=== PATIENT | female | born 1945 | race Caucasian/White ===

== ENCOUNTER 2019-12-26 09:38 | Inpatient (IN) | payer MEDICARE ==
[~2019-12-26] VITALS: Ht 176.5 cm; Wt 110.0 kg
--- NOTE | 2019-12-26 09:56 | PHYS DOC ---
General Adult EDM: Chief Complaint: CHEST PAIN HPI: HPI: The history was obtained from the patient. Patient is a 74-year-old female with PMH chronic leukemia who presents with a chief complaint of chest pain. Patient states she has not felt well for the past 2 weeks. She is unable to explain her exact symptoms. She states that she has had a nonproductive cough. She notes she has had subjective fevers and chills over 2 weeks. She notes that chest pain began sometime prior to arrival. States earlier this morning but does not know when. She states she was at rest when the pain began. She did take nitroglycerin at home with relief of her pain. She states that the chest pain seems to be returning. Denies syncope. Denies diaphoresis. States that the pain starts in her chest wall and seems to radiate through to her back. Denies feelings of irregular rapid heartbeat. States she was on antibiotics recently but does not know what for or what antibiotic she was prescribed. She states that she does use 2 to 3 L of oxygen at home at baseline. Notes that they did increase her oxygen requirement 1 L recently. Denies history of blood clot in legs or lungs. No other complaints at this time. Review of Systems: Review of Systems: Constitutional: Denies fever or chills Eyes: Denies change in visual acuity HENT: Denies nasal congestion or sore throat Respiratory: Positive shortness of breath, cough Cardiovascular: Positive for chest pain GI: Denies abdominal pain, nausea, vomiting, bloody stools or diarrhea : Denies dysuria Musculoskeletal: Denies back pain or joint pain Integument: Denies rash Neurologic: Denies headache, focal weakness or sensory changes Endocrine: Denies polyuria or polydipsia Lymphatic: Denies swollen glands Psychiatric: Denies depression or anxiety Heart Score: HEART Score for Chest Pain: HEART Score for Chest Pain Response (Comments) Value History Moderately Suspicious 1 ECG Nonspecific Repolarizatio 1 Age > 65 2 Risk Factors >3 Risk Factors or Hx CAD 2 Troponin < Normal Limit 0 Total 6 Risk Factors: Risk Factors: DM, Current or recent (<one month) smoker, HTN, HLP, family history of CAD, obesity. Risk Scores: Score 0 - 3: 2.5% MACE over next 6 weeks - Discharge Home Score 4 - 6: 20.3% MACE over next 6 weeks - Admit for Clinical Observation Score 7 - 10: 72.7% MACE over next 6 weeks - Early Invasive Strategies Physical Exam: PE: Constitutional: Well developed, well nourished, no acute distress, non-toxic ap pearance. [] HENT: Normocephalic, atraumatic, bilateral external ears normal, oropharynx moist, no oral exudates, nose normal. [] Eyes: PERRLA, EOMI, conjunctiva normal, no discharge. [] Neck: Normal range of motion, no tenderness, supple, no stridor. [] Cardiovascular:Heart rate regular rhythm, no murmur [] Lungs & Thorax: Bilateral breath sounds clear to auscultation. Nasal cannula in place. [] Abdomen: soft, no tenderness, no masses, no pulsatile masses. [] Skin: Warm, dry, no erythema, no rash. [] Back: No tenderness, no CVA tenderness. [] Extremities: No tenderness, no cyanosis, no clubbing, ROM intact, no edema. [] Neurologic: Alert and oriented X 3, normal motor function, normal sensory function, no focal deficits noted. [] Psychologic: Affect normal, judgement normal, mood normal. [] Current Patient Data: Labs: Laboratory Tests Test 12/26/19 10:10 White Blood Count 47.7 x10^3/uL Red Blood Count 5.84 x10^6/uL Hemoglobin 14.0 g/dL Hematocrit 44.1 % Mean Corpuscular Volume 76 fL Mean Corpuscular Hemoglobin 24 pg Mean Corpuscular Hemoglobin Concent 32 g/dL Red Cell Distribution Width 17.3 % Platelet Count 203 x10^3/uL Neutrophils (%) (Auto) 24 % Lymphocytes (%) (Auto) 73 % Monocytes (%) (Auto) 2 % Eosinophils (%) (Auto) 1 % Basophils (%) (Auto) 0 % Neutrophils # (Auto) 11.7 x10^3uL Lymphocytes # (Auto) 34.6 x10^3/uL Monocytes # (Auto) 1.1 x10^3/uL Eosinophils # (Auto) 0.2 x10^3/uL Basophils # (Auto) 0.1 x10^3/uL Platelet Estimate Pending Sodium Level 141 mmol/L Potassium Level 3.9 mmol/L Chloride Level 102 mmol/L Carbon Dioxide Level 29 mmol/L Anion Gap 10 Blood Urea Nitrogen 15 mg/dL Creatinine 0.9 mg/dL Estimated GFR (Cockcroft-Gault) 61.0 BUN/Creatinine Ratio 17 Glucose Level 202 mg/dL Lactic Acid Level 2.1 mmol/L Calcium Level 9.3 mg/dL Magnesium Level 1.7 mg/dL Total Bilirubin 1.2 mg/dL Aspartate Amino Transf (AST/SGOT) 35 U/L Alanine Aminotransferase (ALT/SGPT) 47 U/L Alkaline Phosphatase 152 U/L Troponin I Quantitative 0.020 ng/mL NI-Lbk-M-Type Natriuretic Peptide 229 pg/mL Total Protein 6.5 g/dL Albumin 3.9 g/dL Albumin/Globulin Ratio 1.5 Lipase 69 U/L Current Medications Medications (Trade) Dose Ordered Sig/Porsche Route PRN Reason Start Time Stop Time Status Last Admin Dose Admin Iohexol (Omnipaque 350 Mg/ml) 100 ml 1X ONCE IV 12/26/19 11:15 12/26/19 11:16 DC 12/26/19 11:12 Vital Signs: Vital Signs Date Time Temp Pulse Resp B/P (MAP) Pulse Ox O2 Delivery O2 Flow Rate FiO2 12/26/19 10:38 98.4 94 22 120/89 (99) 92 Room Air EKG: EKG: EKG consistent with sinus tachycardia. Ventricular rate of 101 bpm. [place] normal. QTc 514. No acute ischemic changes appreciated. ST flattening noted in lateral precordial leads. [] Radiology/Procedures: Radiology/Procedures: [place] [address] IMAGING REPORT Signed PATIENT: GEOVANY PARRA ACCOUNT: [id number] : 1945 LOCATION: ER AGE: 74 SEX: F EXAM STATUS: REG ER ORD. PHYSICIAN: KUNAL JENKINS DO REASON: SOb and Cp. concern for PE OMNI 350 100CC PROCEDURE: CT ANGIOGRAPHY CHEST Examination: CT angiography chest with IV contrast HISTORY: History of shortness of breath, chest pain COMPARISON: None available TECHNIQUE: Axial CT and radiographic images were performed with IV contrast. Coronal and sagittal 3-D MIP reformats are performed Exposure: One or more of the following individualized dose reduction techniques were utilized for this examination: 1. Automated exposure control 2. Adjustment of the mA and/or kV according to patient size 3. Use of iterative reconstruction technique FINDINGS: The central airways are patent. Coronary artery calcifications identified. Moderate aortic atherosclerosis. There is no evidence of filling defect identified in the main pulmonary arterial trunk and right and left main pulmonary arteries and the visualized lobar, segmental branch of the pulmonary arteries. There is a 2 cm right hilar lymph node identified. Moderate to severe bilateral lung emphysematous changes. Mild airspace opacity identified in the right middle lobe of the lung and in the bibasilar lungs likely atelectasis or infiltrates Partially visualized mild splenomegaly Cystic structure identified in the 4.5 cm in the right kidney. Moderate degenerative changes thoracic spine. Mild prominent bilateral axillary lymph nodes and retroperitoneal. IMPRESSION: 1. No evidence of pulmonary embolism. 2. Moderate to severe bilateral lung emphysematous changes. Focal airspace opacity identified in the right middle lobe, bibasilar lungs likely atelectasis or infiltrates. Follow-up to resolution.. 3. Partially visualized mild splenomegaly. Partially visualized probable cyst right kidney. 4. Mild prominent bilateral axillary lymph nodes, retroperitoneal lymph nodes and hilar lymph nodes. Nonspecific. Lymphoma is not completely excluded. Consider PET/CT follow-up. Electronically signed by: Jude Restrepo MD (12/26/2019 11:39 AM) [id number] DICTATED AND SIGNED BY: JUDE RESTREPO MD DATE: 12/26/19 1139 CC: PCP,NO; KUNAL JENKINS DO ~ [place] [address] IMAGING REPORT Signed PATIENT: GEOVANY PARRA ACCOUNT: [id number] : 1945 LOCATION: ER AGE: 74 SEX: F EXAM STATUS: REG ER ORD. PHYSICIAN: KUNAL JENKINS DO REASON: CP PROCEDURE: CHEST AP ONLY Examination: CHEST AP ONLY History: CP Comparison: 09/09/2009. Findings: AP portable upright frontal view of the chest was obtained. The cardiomediastinal silhouette is normal. Lungs are clear. Borderline pulmonary hyperinflation again seen. There is no pneumothorax. No pleural effusion is appreciated. No acute bone abnormality. IMPRESSION: No acute cardiopulmonary process. Electronically signed by: Pete Rousseau MD (12/26/2019 10:14 AM) [id number] DICTATED AND SIGNED BY: PETE ROUSSEAU MD DATE: 12/26/19 1014 CC: PCP,VEDA; KUNAL JENKINS DO ~ [] Course & Med Decision Making: Course & Med Decision Making Pertinent Labs and Imaging studies reviewed. (See chart for details) [] Patient is a chronically ill-appearing 74-year-old female presents with chief complaint of chest pain and shortness of breath. She states the chest pain was relieved with nitroglycerin at home prior to arrival. Initial EKG without acute ischemic changes. She does have some ST flattening in the lateral leads. Basic labs were obtained. She does have mild elevated lactate of 2.1. No signs of focal infection. COVID swab obtained and pending. CT angiogram of the chest was obtained given her history of cancer to rule out pulmonary embolism. This was negative. Antibiotics were deferred as her no signs of acute bacterial infection. She did take an aspirin at home prior to arrival. I do feel she is at least a moderate risk heart score and will require hospitalization for further work-up. Signout has been given to hospitalist and patient is agreeable for hospitalization. Tita Disclaimer: Tita Disclaimer: This electronic medical record was generated, in whole or in part, using a voice recognition dictation system. Departure Departure: Impression: Primary Impression: Chest pain Qualified Codes: R07.9 - Chest pain, unspecified Additional Impressions: CLL (chronic lymphocytic leukemia) Hypomagnesemia Disposition: ADMITTED INPATIENT Condition: STABLE Referrals: PCP,VEDA (PCP) Justification of Admission: Justification of Admission: Justification of Admission Dx: Yes Angina: [place] Worsening of Sym KUNAL JENKINS DO Dec 26, 2019 09:56
--- NOTE | 2019-12-26 10:17 | RAD ---
Examination: CHEST AP ONLY History: CP Comparison: 09/09/2009. Findings: AP portable upright frontal view of the chest was obtained. The cardiomediastinal silhouette is normal. Lungs are clear. Borderline pulmonary hyperinflation again seen. There is no pneumothorax. No pleural effusion is appreciated. No acute bone abnormality. IMPRESSION: No acute cardiopulmonary process. Electronically signed by: Pete Arce MD (12/26/2019 10:14 AM) [id number]
--- NOTE | 2019-12-26 10:36 | EKG ---
[address] [address] Test Date: 2019-12-26 Test Time: 09:47:06 Pat Name: GEOVANY PARRA Department: Room: Gender: F Field Education Coordinator: TABITHA : 1945 Requested By: KUNAL JENKINS Order Number: [id number] Reading MD: Wilfred Johnson Measurements Intervals [place] Rate: 101 P: -90 NC: 98 QRS: 19 QRSD: 98 T: 69 QT: 396 QTc: 514 Interpretive Statements SINUS RHYTHM Electronically Signed On 01-01-2020 12:51:23 CDT by Wilfred Johnson
[2019-12-26 10:45] LABS: BASO # 0.1 x10^3/uL (0.0-0.2); BASO % 0 % (0-3); EOS # 0.2 x10^3/uL (0.0-0.7); EOS % 1 % (0-3); HEMATOCRIT 44.1 % (36.0-47.0); LYMPH # 34.6 x10^3/uL (1.0-4.8); LYMPH % 73 % (24-48); MEAN CORPUSCULAR HEMOGLOBIN 24 pg (25-35); MEAN CORPUSCULAR HGB CONC 32 g/dL (31-37); MEAN CORPUSCULAR VOLUME 76 fL (79-100); MONO # 1.1 x10^3/uL (0.0-1.1); MONO % 2 % (0-9); NEUT # 11.7 x10^3uL (1.8-7.7); NEUT % 24 % (31-73); PLATELET COUNT 203 x10^3/uL (140-400); RED BLOOD COUNT 5.84 x10^6/uL (3.50-5.40); RED CELL DISTRIBUTION WIDTH 17.3 % (11.5-14.5)
[2019-12-26 10:50] LABS: CALCIUM 9.3 mg/dL (8.5-10.1); CREATININE 0.9 mg/dL (0.6-1.0); POTASSIUM 3.9 mmol/L (3.5-5.1)
[2019-12-26 11:03] LABS: ALBUMIN 3.9 g/dL (3.4-5.0); ALBUMIN/GLOBULIN RATIO 1.5 (1.0-1.7); MAGNESIUM 1.7 mg/dL (1.8-2.4); TOTAL BILIRUBIN 1.2 mg/dL (0.2-1.0); TOTAL PROTEIN 6.5 g/dL (6.4-8.2)
[2019-12-26] MEDS ORDERED: IOHEXOL 350 MG/ML 100 ML VIAL. IV ONE (11:15)
[2019-12-26 11:19] LABS: WHITE BLOOD COUNT 47.7 x10^3/uL (4.0-11.0)
--- NOTE | 2019-12-26 11:42 | RAD ---
Examination: CT angiography chest with IV contrast HISTORY: History of shortness of breath, chest pain COMPARISON: None available TECHNIQUE: Axial CT and radiographic images were performed with IV contrast. Coronal and sagittal 3-D MIP reformats are performed Exposure: One or more of the following individualized dose reduction techniques were utilized for this examination: 1. Automated exposure control 2. Adjustment of the mA and/or kV according to patient size 3. Use of iterative reconstruction technique FINDINGS: The central airways are patent. Coronary artery calcifications identified. Moderate aortic atherosclerosis. There is no evidence of filling defect identified in the main pulmonary arterial trunk and right and left main pulmonary arteries and the visualized lobar, segmental branch of the pulmonary arteries. There is a 2 cm right hilar lymph node identified. Moderate to severe bilateral lung emphysematous changes. Mild airspace opacity identified in the right middle lobe of the lung and in the bibasilar lungs likely atelectasis or infiltrates Partially visualized mild splenomegaly Cystic structure identified in the 4.5 cm in the right kidney. Moderate degenerative changes thoracic spine. Mild prominent bilateral axillary lymph nodes and retroperitoneal. IMPRESSION: 1. No evidence of pulmonary embolism. 2. Moderate to severe bilateral lung emphysematous changes. Focal airspace opacity identified in the right middle lobe, bibasilar lungs likely atelectasis or infiltrates. Follow-up to resolution.. 3. Partially visualized mild splenomegaly. Partially visualized probable cyst right kidney. 4. Mild prominent bilateral axillary lymph nodes, retroperitoneal lymph nodes and hilar lymph nodes. Nonspecific. Lymphoma is not completely excluded. Consider PET/CT follow-up. Electronically signed by: Jude Restrepo MD (12/26/2019 11:39 AM) [id number]
[2019-12-26] MEDS ORDERED: MAGNESIUM SULFATE 2GM 50 ML IV ONE (12:15)
[2019-12-26] MEDS ORDERED: ONDANSETRON PF 4 MG/2 ML VIAL. IVP PRN (12:15)
[2019-12-26 14:16] LABS: % ATYL 2 % (0-0); % BANDS 2 % (0-9); % LYMPHS 72 % (24-48); % MONOS 3 % (0-10); SMUDGE CELLS PRESENT
[2019-12-26 14:17] LABS: HYPOCHROMIA PRESENT; TARGET CELLS PRESENT
[2019-12-26 14:18] LABS: OVALOCYTES PRESENT; STOMATOCYTES PRESENT
[2019-12-26 14:20] LABS: PLT ESTIMATE ADEQUATE (ADEQUATE)
[2019-12-26 14:37] VITALS: BP 135/73
--- NOTE | 2019-12-26 17:34 | NUR ---
PATIENT IS 74 Y O F ARRIVED TO ROOM 122 VIA EMS ACCOMPANIED BY STAFF. PAT IS A/O X 4, TRANSFER WITH ASSIST X 1, USING A WALKER. PATIENT C/O SOA, DENIES PAIN, DENIES N/V. PATIENT ORIENTED TO THE ROOM AND HOSPITAL POLICIES. PT IS CURRENTLY IN A BED AWAITING FOR MEAL, STATED SHE IS HUNGRY. WILL CONTINUE TO MONITOR.
--- NOTE | 2019-12-26 17:58 | NUR ---
CONSULT FOR CARDIOLOGY CALLED
[2019-12-26 17:59] LABS: ALBUMIN 3.6 g/dL (3.4-5.0); ALBUMIN/GLOBULIN RATIO 1.2 (1.0-1.7); CALCIUM 8.9 mg/dL (8.5-10.1); GFR 54.1; POTASSIUM 3.8 mmol/L (3.5-5.1); TOTAL PROTEIN 6.6 g/dL (6.4-8.2)
[2019-12-26 18:03] LABS: BGAS PH 7.39 (7.35-7.45)
--- NOTE | 2019-12-26 19:59 | HP ---
ADMIT DATE: 12/26/2019 HISTORY OF PRESENT ILLNESS: The patient is a 74-year-old female patient who came to the Emergency Room complaining of chest pain. She stated that she had not been feeling well for the last 2 weeks, has been complaining of mild low-grade fever. She is tired, short of breath, and hypoxic. She was before on 2 liters of oxygen. Now, she is on 3 liters of oxygen. She noted that her chest pain began sometimes prior to arrival early in the mornings, but does not know exactly the timing. She was at rest when the pain began. She did take 3 nitroglycerins sublingually with relief of her pain. She stated that her chest pain seems to be returning. Denied any syncope or diaphoresis. She stated the pain was retrosternal, radiated through and through to her back. Denied any feelings of irregular rapid heart rate. She stated that she was recently on antibiotic, but does not know what for or what antibiotic she was prescribed. She stated that she is normally on 3 liters of oxygen and normally keeps her oxygen more than 95%. However, recently her oxygen saturation dropped down to 87% and had to increase her oxygen to 3 liters. She was extensively investigated in the Emergency Room. Her white cell count was high at 47,700; however, she is known to have chronic lymphocytic leukemia. Her chemistry showed that she has mild lactic acidosis. Her first set of troponin was slightly elevated at 0.020, but otherwise her chemistry seems to be unremarkable except the magnesium ____ on the lower side. Her hemoglobin, hematocrit and platelets are all within normal limit. She has had an EKG, which showed that she was in sinus tachycardia with a ventricular rate of 101 beats per minute, normal axis, corrected QT interval of 514, no acute ischemic changes appreciated, ST flattening noted in the lateral precordial leads. Her chest x-ray showed no acute cardiopulmonary process; however, CT angio, which was done as her further investigation of her chest pain showed that the patient has no evidence of pulmonary embolism. She has [id number] bilateral lung emphysematous changes, focal airspace opacity identified in the right middle lobe and bibasilar lungs, likely atelectasis or infiltrate. She also has partially visualized mild splenomegaly, partially visualized probable cyst in the right kidney. She has mild prominent bilateral axillary lymph nodes, retroperitoneal lymph nodes and hilar lymph nodes; unspecific lymphoma is not completely excluded. The patient was admitted with basically chest pain and worsening shortness of breath. The patient has also some memory deficit, so she could not really give us all the information about her. PAST MEDICAL HISTORY: She claims that she has coronary artery disease and had myocardial infarction twice for which she was seen at [facility] and was also seen at [facility] at [facility]. She was diagnosed with congestive heart failure, morbid obesity, obstructive sleep apnea. Her primary care physician is Dr. [place]. Unfortunately, his office was closed. She gets some of her medication from [facility], but mostly from [facility]. PAST SURGICAL HISTORY: Significant for appendectomy, right hip fracture, status post open reduction and internal fixation, back surgery, total abdominal hysterectomy and bilateral salpingo-oophorectomy, bilateral cataract extraction and tonsillectomy. ALLERGIES: SHE IS ALLERGIC TO HYDROCODONE. MEDICATIONS: Unfortunately, her primary care physician's office is closed, so we do not have access to her medical record this evening. She lives alone and she has a caregiver. FAMILY HISTORY: She has one brother, older, and still alive. Her mother at age of 80 because of myocardial infarction. Father at age of 78, has 2 brothers, one committed suicide and one shortly after he had surgery on his knee. SOCIAL HISTORY: She lives alone. She has a caregiver who does the shopping and cleaning. She is an ex-smoker and continued to smoke every now and then. She does not drink alcohol or use recreational drugs. 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 She has one daughter because of complication of alcoholism. One son is homeless and 1 daughter who lives around here in [place] with her children and her . REVIEW OF SYSTEMS: She had bilateral cataract extraction, but denied any glaucoma or macular degeneration. Denied any earache, tinnitus or sensorineural deafness. Denied any nosebleeds, stuffy nose or postnasal drip. Denied any sore throat, sore tongue, toothache, hoarseness of voice or difficulty swallowing. Denied any nausea, vomiting, diarrhea or constipation. Denied any hematemesis, melena, or hematochezia. Denied any dysuria, frequency or hematuria. Did complain obviously of chest pain and shortness of breath. Denied any cough, phlegm or hemoptysis. PHYSICAL EXAMINATION: GENERAL: On arrival to the Emergency Room, she apparently was slightly tachypneic, but there was no pallor, jaundice, cyanosis or thyromegaly. No jugular venous distention. No limb edema. VITAL SIGNS: Her heart rate was 94, blood pressure 120/89, temperature was 98.4, respiratory rate was 22 and oxygen saturation was 92%. HEAD, EYES, EARS, NOSE AND THROAT: Showed normocephalic, atraumatic. NECK: Supple. HEART: Showed normal first and second heart sounds. No gallop or murmur. CHEST: Shows central trachea, equally reduced expansion, reduced air entry, vesicular sounds, very few crepitations posteriorly. I could not appreciate any rhonchi. ABDOMEN: Distended, soft, nontender. NEUROLOGIC: She definitely has impaired memory; however, all her cranial nerves are intact. EXTREMITIES: She moves extremities without difficulty. She apparently ambulates with a walker and chose a scooter at her house. LABORATORY DIAGNOSTIC DATA: Her lab work on arrival showed a white cell count 47,700, hemoglobin 14, hematocrit 44, MCV 76 and platelet count 203,000 with a manual differential showed 24% polymorphs, 73% lymphocytes and 2% monocytes. Her serum sodium was 141, potassium 3.9, chloride 102, bicarbonate 29, anion gap of 10, BUN 15, creatinine 0.9, estimated GFR was 61 mL per minute. Her glucose was 202, calcium was 9.3. Lactic acid was 2.1 and up to 2.4. Her magnesium was 1.7. Total bilirubin, AST, ALT were normal. Alkaline phosphatase was slightly elevated. Her first troponin was less than 0.020. BNP was ____. Total protein 6.5, albumin 3.9 and lipase was ____. Her chest x-ray showed no acute cardiopulmonary process; however, CT angio of the chest showed no evidence of pulmonary embolism; however, she has [id number] bilateral lung emphysematous changes with focal airspace opacity identified in the right middle lobe. She has also bibasilar lung, likely atelectasis or infiltrate ____. She has partially visualized mild splenomegaly, partially visualized probable cyst in the right kidney and she has mild prominent bilateral axillary lymph nodes and retroperitoneal lymph nodes and hilar lymph nodes, nonspecific and lymphoma is not completely excluded. PLAN: We will do 2 more sets of cardiac enzyme, given the finding on her CT scan. I will start also on IV antibiotic. We will consult the solar installation foreman and repeat all her labs. If her bilirubin and alkaline phosphatase continued to rise, we might have to do an abdominal ultrasound. VLAD RICARDO MD DR: YASMINE/shanta JOB#: [id number] / [id number]
[2019-12-26 20:08] VITALS: BP 135/77
[2019-12-26] MEDS: LACTOBACILLUS RHAMNOSUS GG 1 CAPSULE. PO SCH (20:10)
[2019-12-26] MEDS: DOXYCYCLINE HYCLATE 100 MG TABLET PO SCH (20:10)
[2019-12-26] MEDS: ACETAMINOPHEN 325 MG TABLET PO PRN (21:14)
[2019-12-26 22:11] VITALS: BP 170/79
[2019-12-26 22:54] VITALS: BP 152/72
--- NOTE | 2019-12-27 00:27 | NUR ---
Pt in room, lying in bed at shift change. Pt A/O, calm, and pleasant. IV in R AC changed this evening and a new IV placed in L hand, however, IV was accidently removed. Pt cooperative and compliant with medications and assessment. Addendum: 12/27/19 at 0034 by SALVATORE STRATTON RN Pt did have c/o headache and Tylenol 650mg administered as ordered.
[2019-12-27] MEDS: ACETAMINOPHEN 325 MG TABLET PO PRN ×3 (04:04→22:26)
[2019-12-27 06:16] VITALS: BP 121/64
[2019-12-27 07:02] LABS: HEMATOCRIT 40.1 % (36.0-47.0); HEMOGLOBIN 12.5 g/dL (12.0-15.5); RED BLOOD COUNT 5.3 x10^6/uL (3.50-5.40); RED CELL DISTRIBUTION WIDTH 17.5 % (11.5-14.5); WHITE BLOOD COUNT 38.6 x10^3/uL (4.0-11.0)
[2019-12-27 07:11] LABS: CALCIUM 8.6 mg/dL (8.5-10.1); CREATININE 0.7 mg/dL (0.6-1.0); GFR 81.6; POTASSIUM 3.7 mmol/L (3.5-5.1)
[2019-12-27] MEDS: DOXYCYCLINE HYCLATE 100 MG TABLET PO SCH ×2 (09:39→22:26)
[2019-12-27] MEDS: LACTOBACILLUS RHAMNOSUS GG 1 CAPSULE. PO SCH ×2 (09:39→22:26)
[2019-12-27 11:00] VITALS: BP 151/60
--- NOTE | 2019-12-27 14:29 | NUR ---
IP: patient PUI for COVID-19 requires contact and airborne precautions.
[2019-12-27 15:00] VITALS: BP 150/79
--- NOTE | 2019-12-27 16:57 | PDOC2 ---
CONSULT DOS: DATE: 12/27/19 TIME: 16:50 Reason for Consult: Chest pain Referring Physician: Dr. Stevens Chief Complaint Chest pain, fatigue Source: Chart review, Patient Problem List Problems Medical Problems: (1) Chest pain Status: Acute (2) CLL (chronic lymphocytic leukemia) Status: Acute (3) Hypomagnesemia Status: Acute History of Present Illness The patient is a 74-year-old female who presented with 2 weeks of increasing shortness of breath and more recent episodes of chest discomfort. The patient has a history of chronic lymphocytic leukemia and her initial white count was 47. She has a history of possible coronary artery disease although she is a very limited historian. EKG showed no acute ischemic changes. Troponin has been normal x2. Chest x-ray shows no acute processes. CT of the chest showed no pulmonary emboli. It did show moderate to severe emphysematous changes. The patient is more comfortable today. Cardiovascular: CAD, HTN Pulmonary: COPD, Other (Obstructive sleep apnea) Heme/Onc: Cancer Past Surgical History: Appendectomy, Hysterectomy, Tonsillectomy, Other (Repair of a hip fracture) Family History: Coronary Artery Disease, Hypertension Smoke: No ALCOHOL: none Current Medications Current Medications Iohexol (Omnipaque 350 Mg/ml) 100 ml 1X ONCE IV Last administered on 12/26/19at 11:12; Start 12/26/19 at 11:15; Stop 12/26/19 at 11:16; Status DC Magnesium Sulfate 50 ml @ 25 mls/hr 1X ONCE IV Last administered on 12/26/19at 13:00; Start 12/26/19 at 12:15; Stop 12/26/19 at 14:14; Status DC Ondansetron HCl (Zofran) 4 mg PRN Q4HRS PRN IVP NAUSEA/VOMITING; Start 12/26/19 at 12:15; Stop 12/27/19 at 12:14; Status DC Ceftriaxone Sodium 1 gm/ Sodium Chloride 50 ml @ 100 mls/hr Q24H IV Last administered on 12/26/19at 18:25; Start 12/26/19 at 17:30 Doxycycline Hyclate (Vibra-Tab) 100 mg BID PO Last administered on 12/27/19at 09:39; Start 12/26/19 at 21:00 Lactobacillus Rhamnosus (Culturelle) 1 cap BID PO Last administered on 12/27/19at 09:39; Start 12/26/19 at 21:00 Acetaminophen (Tylenol) 650 mg PRN Q6HRS PRN PO MILD PAIN / TEMP > 100.3'F Last administered on 12/27/19at 15:26; Start 12/26/19 at 21:00 Allergies: Coded Allergies: hydrocodone (Verified Allergy, Unknown, 12/26/19) General: YES: Fatigue Cardiovascular: yes: Chest Pain General: mild distress HEENT: Atraumatic Lungs: Other (Mildly decreased breath sounds) Heart: Regular rate Abdomen: Normal bowel sounds VITALS Vital Signs Date Time Temp Pulse Resp B/P (MAP) Pulse Ox O2 Delivery O2 Flow Rate FiO2 12/27/19 15:00 98.0 84 18 150/79 (102) 96 Room Air 12/27/19 08:15 3.0 Labs Laboratory Tests Test 12/26/19 10:10 12/26/19 13:09 12/26/19 17:13 12/26/19 17:48 White Blood Count 47.7 x10^3/uL (4.0-11.0) Red Blood Count 5.84 x10^6/uL (3.50-5.40) Hemoglobin 14.0 g/dL (12.0-15.5) Hematocrit 44.1 % (36.0-47.0) Mean Corpuscular Volume 76 fL (79-100) Mean Corpuscular Hemoglobin 24 pg (25-35) Mean Corpuscular Hemoglobin Concent 32 g/dL (31-37) Red Cell Distribution Width 17.3 % (11.5-14.5) Platelet Count 203 x10^3/uL (140-400) Neutrophils (%) (Auto) 24 % (31-73) Lymphocytes (%) (Auto) 73 % (24-48) Monocytes (%) (Auto) 2 % (0-9) Eosinophils (%) (Auto) 1 % (0-3) Basophils (%) (Auto) 0 % (0-3) Neutrophils # (Auto) 11.7 x10^3uL (1.8-7.7) Lymphocytes # (Auto) 34.6 x10^3/uL (1.0-4.8) Monocytes # (Auto) 1.1 x10^3/uL (0.0-1.1) Eosinophils # (Auto) 0.2 x10^3/uL (0.0-0.7) Basophils # (Auto) 0.1 x10^3/uL (0.0-0.2) Segmented Neutrophils % 21 % (35-66) Band Neutrophils % 2 % (0-9) Lymphocytes % 72 % (24-48) Atypical Lymphocytes % (Manual) 2 % (0-0) Monocytes % 3 % (0-10) Smudge Cells Present Platelet Estimate Adequate (ADEQUATE) Hypochromasia Present Target Cells Present Ovalocytes Present Stomatocytes Present Sodium Level 141 mmol/L (136-145) 137 mmol/L (136-145) Potassium Level 3.9 mmol/L (3.5-5.1) 3.8 mmol/L (3.5-5.1) Chloride Level 102 mmol/L (98-107) 99 mmol/L (98-107) Carbon Dioxide Level 29 mmol/L (21-32) 27 mmol/L (21-32) Anion Gap 10 (6-14) 11 (6-14) Blood Urea Nitrogen 15 mg/dL (7-20) 16 mg/dL (7-20) Creatinine 0.9 mg/dL (0.6-1.0) 1.0 mg/dL (0.6-1.0) Estimated GFR (Cockcroft-Gault) 61.0 54.1 BUN/Creatinine Ratio 17 (6-20) 16 (6-20) Glucose Level 202 mg/dL (70-99) 306 mg/dL (70-99) Lactic Acid Level 2.1 mmol/L (0.4-2.0) 2.4 mmol/L (0.4-2.0) 2.9 mmol/L (0.4-2.0) Calcium Level 9.3 mg/dL (8.5-10.1) 8.9 mg/dL (8.5-10.1) Magnesium Level 1.7 mg/dL (1.8-2.4) Total Bilirubin 1.2 mg/dL (0.2-1.0) 1.0 mg/dL (0.2-1.0) Aspartate Amino Transf (AST/SGOT) 35 U/L (15-37) 35 U/L (15-37) Alanine Aminotransferase (ALT/SGPT) 47 U/L (14-59) 47 U/L (14-59) Alkaline Phosphatase 152 U/L (46-116) 144 U/L (46-116) Troponin I Quantitative 0.020 ng/mL (0-0.055) < 0.017 ng/mL (0-0.055) CO-Gkl-G-Type Natriuretic Peptide 229 pg/mL (0-449) Total Protein 6.5 g/dL (6.4-8.2) 6.6 g/dL (6.4-8.2) Albumin 3.9 g/dL (3.4-5.0) 3.6 g/dL (3.4-5.0) Albumin/Globulin Ratio 1.5 (1.0-1.7) 1.2 (1.0-1.7) Lipase 69 U/L (73-393) Blood Gas pH 7.39 (7.35-7.45) Blood Gas PCO2 40 mmHg (35-45) Blood Gas PO2 73 mmHg (71-100) Blood Gas HCO3 25 mmol/L (22-26) Arterial Bld O2 Saturation (Calc) 94 % (92-99) FiO2 32 % Test 12/27/19 05:30 White Blood Count 38.6 x10^3/uL (4.0-11.0) Red Blood Count 5.30 x10^6/uL (3.50-5.40) Hemoglobin 12.5 g/dL (12.0-15.5) Hematocrit 40.1 % (36.0-47.0) Mean Corpuscular Volume 76 fL (79-100) Mean Corpuscular Hemoglobin 24 pg (25-35) Mean Corpuscular Hemoglobin Concent 31 g/dL (31-37) Red Cell Distribution Width 17.5 % (11.5-14.5) Platelet Count 160 x10^3/uL (140-400) Sodium Level 137 mmol/L (136-145) Potassium Level 3.7 mmol/L (3.5-5.1) Chloride Level 100 mmol/L (98-107) Carbon Dioxide Level 27 mmol/L (21-32) Anion Gap 10 (6-14) Blood Urea Nitrogen 13 mg/dL (7-20) Creatinine 0.7 mg/dL (0.6-1.0) Estimated GFR (Cockcroft-Gault) 81.6 Glucose Level 155 mg/dL (70-99) Calcium Level 8.6 mg/dL (8.5-10.1) Troponin I Quantitative < 0.017 ng/mL (0-0.055) Images Chest x-ray with no acute changes. CTA of the chest as above with no pulmonary emboli and moderate to severe emphysematous changes. Assessment/Plan 1. Chest pain. Patient's had no acute ischemic EKG changes. Troponin negative x2. Chest x-ray with no acute processes. We will continue present medications. Patient will require outpatient follow-up and she will states she has been followed at [facility]. 2. CLL. White count of 47. Continue as per primary service. 3. Generalized fatigue and shortness of breath. Chest x-ray shows no acute processes. CT scan showed no PE but do show severe emphysema. Continuing baseline medications. 4. Borderline hypertension. Continue present medications. Thank you for allowing us to participate in the care of your patient. JIE MANCINI MD Dec 27, 2019 16:57
[2019-12-27] MEDS ORDERED: NITROGLYCERIN SUBLINGUAL 0.4 MG BOTTLE OF 25. SL PRN (18:00)
[2019-12-27] MEDS ORDERED: FURO40TA4 PO (18:35)
[2019-12-27] MEDS ORDERED: ISOS120T4 PO (18:35)
[2019-12-27] MEDS ORDERED: METO25TA4 PO (18:35)
[2019-12-27] MEDS ORDERED: GABA-586 PO (18:35)
[2019-12-27] MEDS ORDERED: TRAM50TA PO (18:35)
[2019-12-27] MEDS ORDERED: CRESTOR10 MG PO (18:35)
[2019-12-27] MEDS ORDERED: CALC-30 PO (18:35)
[2019-12-27] MEDS ORDERED: PANT40TA3 PO (18:35)
[2019-12-27] MEDS ORDERED: DULO60CA6 PO (18:35)
[2019-12-27] MEDS ORDERED: METF10007 PO (18:35)
[2019-12-27] MEDS ORDERED: CYAN100072 PO (18:35)
[2019-12-27] MEDS ORDERED: ALBU2.5V5 NEB (18:35)
[2019-12-27] MEDS ORDERED: NITR0.4T24 SL (18:35)
[2019-12-27] MEDS ORDERED: FLUT1DIS3 IH (18:35)
[2019-12-27] MEDS ORDERED: CHOL500051 PO (18:35)
[2019-12-27] MEDS ORDERED: BETA15OI TP (18:35)
[2019-12-27] MEDS ORDERED: GLIP-26 PO (18:35)
[2019-12-27] MEDS ORDERED: SUCR1TAB35 PO (18:35)
[2019-12-27] MEDS ORDERED: POTA20TA4 PO (18:35)
[2019-12-27] MEDS ORDERED: MV-M1TAB8 PO (18:35)
[2019-12-27] MEDS ORDERED: ALBUTEROL SULFATE 8GM INHALER. INH PRN (19:00)
[2019-12-27 20:25] VITALS: BP 151/81
[2019-12-27] MEDS ORDERED: CLOBETASOL EMOLLIENT 0.05% TOPICAL CREAM 15GM TUBE. TP PRN (21:00)
[2019-12-27] MEDS: FLUTICASONE FUROATE 200mcg/INH ELLIPTA INHALER. INH SCH (21:00)
[2019-12-27] MEDS: ALBUTEROL SULFATE 8GM INHALER. INH SCH (21:00)
[2019-12-27 22:01] VITALS: BP 168/67
--- NOTE | 2019-12-27 22:20 | PN ---
DATE: 12/27/2019 SUBJECTIVE: The patient is a 74-year-old female patient who was admitted yesterday through the Emergency Room with a complaint of chest pain. She also complained of not generally feeling well for the last 2 weeks, has been complaining of mild low-grade fever, tired, short of breath, and hypoxic. She was before on 2 liters of oxygen, now she is on 3 liters of oxygen. She did have chest pain that began sometime prior to arrival early in the morning, but does not know exactly the time. She was at rest when this pain began. She did take 3 nitroglycerin sublingually with relief of her pain. She stated that her chest pain seems to be returning. She denied any syncope or diaphoresis. Her pain is mostly retrosternal, radiates through and throughout her back. Denied any feeling of irregular heart rate. She was recently on antibiotic, but does not know what for and what antibiotic she was prescribed. She stated that she is normally on 2 liters of oxygen, maintaining her oxygen saturation at 95%. However, recently her oxygen saturation dropped down to 87%, has increased her oxygen to 3 liters. She is known to have chronic lymphatic leukemia. Her chemistry showed she has mild lactic acidosis. Her first troponin was 0.020 and was admitted and has had 2 more sets of cardiac enzymes that were ruled out myocardial infarction. Her EKG showed that she was in sinus tachycardia with a ventricular rate of 101 beats per minute with prolonged QT interval. Her chest x-ray showed no acute cardiopulmonary process; however, CT angio which was done for further investigation of her chest pain showed the patient has no evidence of pulmonary embolism; however, she has [id number] bilateral lung emphysematous changes, focal airspace opacity identified in the right middle lobe and bibasilar lung, likely atelectasis, infiltrate. She also has partially visualized mild splenomegaly, partially visualized probable cyst in her right kidney and she has multiple lymph nodes in the bilateral axillary areas retroperitoneal lymph nodes and hilar lymph nodes and lymphoma cannot be completely excluded. She was admitted basically with chest pain; however, the patient was extremely demented and does not really give us any information. We did speak with her home health who promised to fax her list of medication today and luckily she did. PHYSICAL EXAMINATION: GENERAL: When I saw her this afternoon, she was resting slightly propped up in bed, in no apparent respiratory distress. There was no pallor, jaundice or cyanosis. No lymphadenopathy, no thyromegaly. No jugular venous distention. No lower limb edema. Her heart rate was 86, blood pressure was 151/60, temperature was 97.4, respiratory rate was 18 and oxygen saturation was 95% on 3 liters of oxygen. HEAD, EYES, EARS, NOSE, AND THROAT: Showed normocephalic, atraumatic. NECK: Supple. CARDIAC: Normal first and second heart sounds with no gallop, rub or murmur. CHEST: Showed central trachea, equally reduced expansion, reduced air entry, vesicular sounds. A very few crepitations posteriorly. I could not appreciate any rhonchi. ABDOMEN: Distended, soft, nontender. NEUROLOGIC: She is definitely have impaired memory, although all her cranial nerves are intact. She moves extremities without difficulty. She apparently ambulates with a walker and has a scooter at home. Examination of both feet showed there are marked reddish discoloration of toes of both feet that extends proximally to the metatarsal area, but somewhat tender to touch according to the patient. LABORATORY DATA: Today showed total white cell count of 38,600, hemoglobin 12.5, hematocrit 40, MCV 76 and platelet count of 160,000. Her chemistry this morning showed a serum sodium 137, potassium 3.7, chloride 100, bicarbonate 27, anion gap of 10, BUN 13, creatinine 0.7, estimated GFR was 82 mL per minute. Her glucose 155, calcium was 8.6. The patient has 3 sets of cardiac enzymes that ruled out acute myocardial infarction. ASSESSMENT: It transpired that the patient has huge list of medical problems including acute gastric ulcer with hemorrhage, anemia, angina pectoris, osteoarthritis, bronchial asthma calcification of the aorta. She did have chronic anxiety, chronic bilateral low back pain, bilateral sciatica, chronic combined systolic and diastolic congestive heart failure, chronic fatigue, chronic lymphoid leukemia in remission, chronic pain in both knees, chronic respiratory failure, did have close fracture of the right hip treated conservatively. She is known to have chronic obstructive pulmonary disease. She as depression, dermatophytosis, diabetic nephropathy with proteinuria and severe emphysema of the lung. She has generalized osteoarthritis of multiple sites. Gastroesophageal reflux disease, headaches, hearing loss, hepatosplenomegaly, history of cerebrovascular accident with left-sided hemiparesis. 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 She apparently has history of myocardial infarction, nonalcoholic steatohepatitis, neuropathic pain, morbid obesity with body mass index between 30-39. She has obstructive sleep apnea, history of pyelonephritis, restless leg syndrome, history of shingles, splenomegaly, type 2 diabetes mellitus with hyperglycemia without long-term use of insulin, urinary frequency visual impairment, vitamin B12 deficiency and vitamin D deficiency. Her past surgical history is significant for appendectomy, back surgery, dental surgery, and esophagogastroduodenoscopy. The patient had tonsillectomy, hysterectomy, eye surgery, right femoral neck fracture treated with open reduction and internal fixation using dynamic hip screws. She is apparently currently on following medications: She is on calcium carbonate with vitamin D 600 mg, she takes 1 tablet twice a day. She was on cephalexin 500 mg 1 capsule by mouth 4 times a day, cholecalciferol vitamin D 5000 units 1 capsule once a day, cyanocobalamin 1000 mcg tablet 1 tablet once a day, duloxetine for Cymbalta 60 mg twice a day. She is on furosemide 40 mg 1 tablet daily. She is on gabapentin 300 mg by mouth at bedtime. She is on glipizide for Glucotrol-XL 10 mg 1 tablet daily. She is on isosorbide mononitrate 120 mg once a day, meloxicam for Mobic 15 mg once a day. She is on metformin for Glucophage 500 mg she takes 2 tablets twice a day, metoprolol 12.5 mg twice a day, multivitamin 1 tablet once a day, nitroglycerin 0.4 mg sublingually every 5 minutes x 3 for chest pain. She is also on Protonix 40 mg twice a day, potassium chloride 20 mEq daily, Crestor 10 mg at bedtime and [place] eye drops 0.65% nasal spray use one spray to each nostril 3 times a day and Carafate 1 gram 3 times a day and tramadol 50 mg 4 times a day. PLAN: My plan is to obviously reconcile all her medication. She is still under investigation. Once we have the test result for COVID is negative, we will be able to proceed with other the investigation as she seemed to have severe peripheral vascular disease which she probably needs arterial Doppler ultrasound. VLAD RICARDO MD DR: Dylan JOB#: [id number] / [id number]
[2019-12-27] MEDS: ATORVASTATIN CALCIUM 20 MG TABLET PO SCH (22:26)
[2019-12-27] MEDS: DULoxetine HCL 60 MG CAPSULE.DR PO SCH (22:26)
[2019-12-27] MEDS: GABAPENTIN 300 MG CAPSULE. PO SCH (22:26)
[2019-12-28 06:05] VITALS: BP 160/87
[2019-12-28] MEDS: MULTIVITAMIN I-VITE TABLET. PO SCH (08:36)
[2019-12-28] MEDS: POTASSIUM CHLORIDE 20 MEQ TABLET.ER. PO SCH (08:36)
[2019-12-28] MEDS: LACTOBACILLUS RHAMNOSUS GG 1 CAPSULE. PO SCH ×2 (08:37→21:59)
[2019-12-28] MEDS: METOPROLOL TART IMMED RELEASE 25 MG TABLET PO SCH (08:37)
[2019-12-28] MEDS: PANTOPRAZOLE 40 MG TABLET. PO SCH ×2 (08:37→17:12)
[2019-12-28] MEDS: DOXYCYCLINE HYCLATE 100 MG TABLET PO SCH ×2 (08:37→21:59)
[2019-12-28] MEDS: DULoxetine HCL 60 MG CAPSULE.DR PO SCH ×2 (08:37→21:59)
[2019-12-28] MEDS: SUCRALFATE 1 GM TABLET. PO SCH ×3 (08:37→17:12)
[2019-12-28] MEDS: metFORMIN 500 MG TABLET PO SCH ×2 (08:37→17:12)
[2019-12-28] MEDS: FUROSEMIDE 40 MG TABLET PO SCH (08:37)
[2019-12-28] MEDS: CALCIUM CARB/VIT D3 500/200 TABLET PO SCH ×2 (08:37→17:13)
[2019-12-28] MEDS: CYANOCOBALAMIN (VITAMIN B-12) 1,000 MCG TABLET. PO SCH (08:38)
[2019-12-28] MEDS: CHOLECALCIFEROL (VITAMIN D3) 1,000 UNIT TABLET PO SCH (08:38)
[2019-12-28] MEDS: ISOSORBIDE MONONITRATE ER 30 MG TAB.ER.24H PO SCH (08:40)
[2019-12-28] MEDS: FLUTICASONE FUROATE 200mcg/INH ELLIPTA INHALER. INH SCH ×2 (09:00→21:00)
[2019-12-28] MEDS: ALBUTEROL SULFATE 8GM INHALER. INH SCH ×2 (09:00→21:00)
[2019-12-28 11:00] VITALS: BP 149/72
[2019-12-28 15:00] VITALS: BP 111/60
--- NOTE | 2019-12-28 18:00 | PN ---
DATE: 12/28/2019 SUBJECTIVE: The patient is resting, slightly propped up in bed, in no apparent distress. She continued to be extremely short of breath on minimal exertion. She has severe emphysema; however, she had 4 sets of cardiac enzymes that ruled out acute myocardial infarction. PHYSICAL EXAMINATION: GENERAL: When I examined her, she looked well and was in no apparent respiratory distress at rest. There was no pallor, jaundice, cyanosis or thyromegaly. No jugular venous distention. No limb edema. VITAL SIGNS: Her heart rate was 89, blood pressure was 149/72, temperature was 98.2, respiratory rate 22, and oxygen saturation was 98%. HEAD, EYES, EARS, NOSE AND THROAT: Showed normocephalic, atraumatic. NECK: Supple. HEART: Showed normal first and second heart sounds. No gallop or murmur. CHEST: Shows central trachea, equal bilateral chest expansion, air entry, vesicular breath sounds. ABDOMEN: Distended, soft, nontender. NEUROLOGIC: She was grossly intact; however, she definitely has impaired memory. She does ambulate with a walker and has a scooter at home. She has marked reddish discoloration of both feet. Her intake over the last 24 hours was 1140, no output was recorded. LABORATORY DATA: Her lab work as of yesterday showed her serum sodium was 137, potassium 3.7, chloride 100, bicarbonate 27, anion gap of 10, BUN 13, creatinine 0.7, estimated GFR was 81 mL per minute. Her glucose 155, calcium was 8.6. Her serum triglycerides 139, total cholesterol 195, LDL was 130, VLDL was 27, HDL was 38 and ratio of 5. Her coronavirus by PCR was not detectable. ASSESSMENT: 1. Chest pain; however, she has 4 cardiac enzymes that ruled out acute myocardial infarction. 2. Community-acquired pneumonia, for which she continues to be on IV antibiotic in the form of ceftriaxone and doxycycline. 3. Acute chronic obstructive pulmonary disease exacerbation. 4. Acute on chronic hypoxic respiratory failure. 5. Chronic diastolic congestive heart failure. 6. She has chronic lymphatic leukemia, in remission. 7. She has also severe osteoarthritis of both knee joints. VLAD RICARDO MD DR: YASMINE/shanta JOB#: [id number] / [id number]
[2019-12-28 19:37] VITALS: BP 132/62
[2019-12-28] MEDS: GABAPENTIN 300 MG CAPSULE. PO SCH (21:59)
[2019-12-28] MEDS: ACETAMINOPHEN 325 MG TABLET PO PRN (21:59)
[2019-12-28] MEDS: ATORVASTATIN CALCIUM 20 MG TABLET PO SCH (22:00)
[2019-12-28] MEDS: traMADol 50 MG TABLET PO PRN (22:30)
[2019-12-28 23:19] VITALS: BP 152/76
[2019-12-29 06:08] VITALS: BP 172/84
[2019-12-29] MEDS: ALBUTEROL SULFATE 8GM INHALER. INH SCH ×2 (09:00→20:26)
[2019-12-29] MEDS: POTASSIUM CHLORIDE 20 MEQ TABLET.ER. PO SCH (09:00)
[2019-12-29] MEDS: ISOSORBIDE MONONITRATE ER 30 MG TAB.ER.24H PO SCH (09:19)
[2019-12-29] MEDS: PANTOPRAZOLE 40 MG TABLET. PO SCH ×2 (09:19→16:57)
[2019-12-29] MEDS: MULTIVITAMIN I-VITE TABLET. PO SCH (09:19)
[2019-12-29] MEDS: CYANOCOBALAMIN (VITAMIN B-12) 1,000 MCG TABLET. PO SCH (09:19)
[2019-12-29] MEDS: FUROSEMIDE 40 MG TABLET PO SCH (09:19)
[2019-12-29] MEDS: CHOLECALCIFEROL (VITAMIN D3) 1,000 UNIT TABLET PO SCH (09:20)
[2019-12-29] MEDS: METOPROLOL TART IMMED RELEASE 25 MG TABLET PO SCH (09:20)
[2019-12-29] MEDS: metFORMIN 500 MG TABLET PO SCH ×2 (09:20→16:57)
[2019-12-29] MEDS: SUCRALFATE 1 GM TABLET. PO SCH ×3 (09:20→16:57)
[2019-12-29] MEDS: DULoxetine HCL 60 MG CAPSULE.DR PO SCH ×2 (09:26→20:26)
[2019-12-29] MEDS: LACTOBACILLUS RHAMNOSUS GG 1 CAPSULE. PO SCH ×2 (09:26→20:25)
[2019-12-29] MEDS: DOXYCYCLINE HYCLATE 100 MG TABLET PO SCH ×2 (09:26→20:25)
[2019-12-29] MEDS: CALCIUM CARB/VIT D3 500/200 TABLET PO SCH ×2 (09:27→16:57)
[2019-12-29] MEDS: FLUTICASONE FUROATE 200mcg/INH ELLIPTA INHALER. INH SCH ×2 (09:27→20:26)
[2019-12-29] MEDS: ACETAMINOPHEN 325 MG TABLET PO PRN (09:32)
--- NOTE | 2019-12-29 10:22 | RAD ---
Examination: Bilateral venous Doppler Indication: Leg swelling Technique: Ultrasound evaluation of the bilateral lower extremities was performed from the groin to the upper calf with michelle scale, spectral and color doppler evaluation. Comparison: None Findings: There is normal venous flow and compressibility of bilateral common femoral veins, femoral veins, popliteal veins, and visualized proximal calf veins. Impression: No evidence for deep vein thrombosis of bilateral lower extremities from the level of the calf veins to the groins. Electronically signed by: Gurmeet Torres MD (12/29/2019 10:19 AM) [id number]
[2019-12-29 11:00] VITALS: BP 108/56
[2019-12-29 15:00] VITALS: BP 129/69
[2019-12-29 19:55] VITALS: BP 140/73
[2019-12-29] MEDS: GABAPENTIN 300 MG CAPSULE. PO SCH (20:25)
[2019-12-29] MEDS: ATORVASTATIN CALCIUM 20 MG TABLET PO SCH (20:26)
[2019-12-29 23:44] VITALS: BP 141/88
--- NOTE | 2019-12-29 23:50 | PN ---
DATE: 12/29/2019 SUBJECTIVE: The patient is resting, sitting, slightly propped up in bed, in no apparent distress. She continued to complain of shortness of breath on exertion. Can walk only for short distances, but has no more complaint of chest pain. Unfortunately, venous Doppler ultrasound instead of arterial Doppler ultrasound was ordered, so I did make sure we ordered arterial Doppler ultrasound as she has marked discoloration of her feet. PHYSICAL EXAMINATION: GENERAL: When I examined her, she looked well and was clearly in no apparent respiratory distress. No pallor, jaundice, cyanosis or thyromegaly. No jugular venous distention or limb edema. VITAL SIGNS: Her heart rate was 79, blood pressure was 129/69, temperature 98.4, respiratory rate 20, and oxygen saturation was 97%. HEAD, EYES, EARS, NOSE AND THROAT: Showed normocephalic, atraumatic. NECK: Supple. CARDIAC: Normal first and second heart sounds. No gallop or murmur. CHEST: Showed central trachea, equal bilateral chest expansion, air entry, vesicular sounds. I could not really appreciate any crepitation or rhonchi. ABDOMEN: Distended, soft, nontender. NEUROLOGIC: She was grossly intact, although she has marked impaired memory. She does ambulate with a walker for short distances and uses a scooter at home. She continued to have marked reddish discoloration of both feet, especially when she dangles them on the side of the bed. Her intake over the last 24 hours was 1470, no output was recorded. LABORATORY DATA: Her last lab work showed a serum sodium 137, potassium 3.7, chloride 100, bicarbonate 27, anion gap of 10, BUN 13, creatinine 0.7, estimated GFR was 81 mL per minute. Her glucose 155, calcium was 8.6. Her serum triglycerides were 139, total cholesterol 195, LDL was 130, VLDL was 27, HDL was 38 and ratio was 5. Her white cell count was 38,600, hemoglobin 12.5, hematocrit 40, MCV 76 and platelet count of 160,000. ASSESSMENT: 1. Chest pain, however, she has 3 cardiac enzymes which ruled out myocardial infarction. 2. Community-acquired pneumonia, for which she continues to be on IV antibiotic in the form of ceftriaxone and doxycycline. 3. Acute on chronic obstructive pulmonary disease exacerbation. 4. Acute on chronic hypoxic respiratory failure. 5. Chronic diastolic congestive heart failure. 6. She has chronic lymphatic leukemia, in remission. 7. She has severe osteoarthritis of both knee joints. 8. Peripheral vascular disease. PLAN: To continue with all her current medication. I will arrange for her to have arterial Doppler ultrasound, and she seemed to be receptive to the idea of going to a care home facility, so we will arrange for her to be admitted to [place] tomorrow. VLAD RICARDO MD DR: YASMINE/shanta JOB#: [id number] / [id number]
[2019-12-30] MEDS: traMADol 50 MG TABLET PO PRN (02:07)
[2019-12-30 06:23] VITALS: BP 138/75
[2019-12-30 06:32] LABS: HEMATOCRIT 36.4 % (36.0-47.0); HEMOGLOBIN 11.4 g/dL (12.0-15.5); RED BLOOD COUNT 4.76 x10^6/uL (3.50-5.40); RED CELL DISTRIBUTION WIDTH 17.5 % (11.5-14.5); WHITE BLOOD COUNT 29.6 x10^3/uL (4.0-11.0)
[2019-12-30 06:50] LABS: ALBUMIN 3.2 g/dL (3.4-5.0); CALCIUM 8.9 mg/dL (8.5-10.1); CREATININE 0.8 mg/dL (0.6-1.0); GFR 69.9; POTASSIUM 3.8 mmol/L (3.5-5.1); TOTAL BILIRUBIN 0.5 mg/dL (0.2-1.0); TOTAL PROTEIN 6.3 g/dL (6.4-8.2)
[2019-12-30] MEDS: MULTIVITAMIN I-VITE TABLET. PO SCH (08:08)
[2019-12-30] MEDS: metFORMIN 500 MG TABLET PO SCH (08:09)
[2019-12-30] MEDS: DULoxetine HCL 60 MG CAPSULE.DR PO SCH (08:09)
[2019-12-30] MEDS: POTASSIUM CHLORIDE 20 MEQ TABLET.ER. PO SCH (08:09)
[2019-12-30] MEDS: METOPROLOL TART IMMED RELEASE 25 MG TABLET PO SCH (08:09)
[2019-12-30] MEDS: FUROSEMIDE 40 MG TABLET PO SCH (08:10)
[2019-12-30] MEDS: CALCIUM CARB/VIT D3 500/200 TABLET PO SCH (08:10)
[2019-12-30] MEDS: DOXYCYCLINE HYCLATE 100 MG TABLET PO SCH (08:10)
[2019-12-30] MEDS: LACTOBACILLUS RHAMNOSUS GG 1 CAPSULE. PO SCH (08:10)
[2019-12-30] MEDS: CHOLECALCIFEROL (VITAMIN D3) 1,000 UNIT TABLET PO SCH (08:10)
[2019-12-30] MEDS: PANTOPRAZOLE 40 MG TABLET. PO SCH (08:10)
[2019-12-30] MEDS: ISOSORBIDE MONONITRATE ER 30 MG TAB.ER.24H PO SCH (08:10)
[2019-12-30] MEDS: SUCRALFATE 1 GM TABLET. PO SCH ×2 (08:10→11:23)
[2019-12-30] MEDS: CYANOCOBALAMIN (VITAMIN B-12) 1,000 MCG TABLET. PO SCH (08:10)
[2019-12-30] MEDS: FLUTICASONE FUROATE 200mcg/INH ELLIPTA INHALER. INH SCH ×2 (08:14→08:20)
[2019-12-30] MEDS: ALBUTEROL SULFATE 8GM INHALER. INH SCH ×2 (08:14→08:19)
--- NOTE | 2019-12-30 09:04 | NUR ---
NURSING NOTE PT WAS IN BED THIS AM UPON ASSESSMENT AND MEDICATION ADMINISTRATION. PT IS A&O AND DENIES PAIN AT THIS TIME, HOWEVER, RECEIVED TRAMADOL FOR CHRONIC BACK PAIN FROM [facility] [facility]. PT TAKES HER MEDS WHOLE ALL AT ONCE AND C/O THE PILLS TAKING A WHILE TO GO DOWN, ENCOURAGED PT TO ONLY TAKE A FEW AT A TIME IN THE FUTURE. PT LBM WAS 12/28 STATES SHE GOES EVERY DAY BEFORE LUNCH. PT WEARS 3L OF OXYGEN. UPON PALPITATION OF PT PEDAL PULSES, PT STATES IT CAUSES PAIN WHEN LIGHTLY TOUCHING HER LEGS. PT HAS SOME GENERALIZED SWELLING. DR RICARDO HAS ORDERED ARTERIAL STUDY D/T DISCOLORATION IN HER TOES AND WEAK PULSES IN HER FEET. PT FINISHED HER BREAKFAST AND RADIOLOGY AT BEDSIDE NOW. WILL CONTINUE TO MONITOR. OSMAN MILES.
[2019-12-30 10:44] VITALS: BP 125/68
--- NOTE | 2019-12-30 11:26 | NUR ---
NURSING NOTE MEDICATION PT HAS SCHEDULED CARAFATE, WHEN EXPLAINING TO THE PT WHAT THE MEDICATION IS, PT STATES "WHATS THAT FOR?" AFTER EDUCATING PT ABOUT HER MEDICATION SHE STATES "I HAVE NOT BEEN TAKING THAT FOR OVER A YEAR OR SO NOW, I DONT NEED TO TAKE THAT". MEDICATION NON-ADMINISTERED. WILL NOTIFY PHYSICIAN UPON ROUNDS. OSMAN MILES.
--- NOTE | 2019-12-30 14:34 | RAD ---
Bilateral lower extremity arterial duplex ultrasound study without comparison for cold feet with markedly red discoloration. TECHNIQUE AND FINDINGS: Real-time grayscale and color spectral Doppler valuation of the arteries of lower extremities is performed. There is mild amount of calcified atherosclerosis in the right common femoral artery. No significant atherosclerosis seen in the remainder of the vessels. There is triphasic flow in the right common femoral artery, with biphasic flow in the proximal right superficial femoral artery and triphasic flow once again in the mid and distal superficial femoral artery, popliteal artery, with biphasic flow seen in the peroneal artery, anterior tibial artery, and dorsalis pedis arteries. No focal velocity elevations to suggest hemodynamically significant stenosis. On the left, there is mild calcified atherosclerosis in the common femoral artery as well as in the mid superficial femoral artery, with triphasic flow within the common femoral, proximal superficial femoral, mid superficial femoral, and popliteal arteries. Mild multifocal atherosclerosis is seen in the popliteal artery as well. Biphasic flow seen in the distal superficial femoral artery as well as in the posterior tibial, peroneal, anterior tibial, and dorsalis pedis arteries. Once again there are no focal velocity elevations to suggest hemodynamic significant stenosis in any distribution. IMPRESSION: 1. Mild multifocal atherosclerosis with no evidence of hemodynamically significant stenosis in any distribution. Electronically signed by: Brandyn Brooks MD (12/30/2019 2:32 PM) [id number]
[2019-12-30] MEDS ORDERED: DOXY100T PO (14:51)
[2019-12-30] MEDS ORDERED: CEFD300C PO (14:51)
--- NOTE | 2019-12-30 14:57 | DISCH ---
HOME HEALTH DISCHARGE/MEDS DISCHARGE INFORMATION: Discharge Date: Dec 30, 2019 Final Diagnosis: Problems Medical Problems: (1) Chest pain Status: Acute (2) CLL (chronic lymphocytic leukemia) Status: Acute (3) Hypomagnesemia Status: Acute Condition on Discharge: Stable HOME HEALTH: Face to Face: I certify this patient is under my care and that I, or a nurse practitioner or physician's assistant manager airside operations working with me, had a face to face encounter that meets the physician face to face encounter requirements with this patient on 12/30/2019 Medical Condition(s): Pneumonia Long Term For: Admin/Educate Injections Physical Therapy For: Evalulation/Treatment Occupational Therapy For: Evaluation/Treatment Homebound Status Met By: Unsteady balance w/ amb, POST DISCHARGE ORDERS: Activity Instructions for Disc: Resume previous activity DIET AFTER DISCHARGE: Cardiac CERTIFICATION STATEMENT: Certification Statement: Based on the above finding, I certify that this patient is confined to the home and needs intermittent [facility] care, physical therapy and/or speech therapy, or continues to need occupational therapy.~ This patient is under my care, and I have initiated the establishment of the plan of care.~ This patient will be followed by myself or a community physician who will periodically review the plan of care. DISCHARGE MEDICATIONS: Home Meds Active Scripts Doxycycline Hyclate (DOXYCYCLINE HYCLATE) 100 Mg Tablet, 1 TAB PO BID for cap, #10 TAB Prov:VLAD RICARDO MD 12/30/19 Cefdinir (CEFDINIR) 300 Mg Capsule, 1 CAP PO BID for cap for 5 Days, #10 CAP Prov:VLAD RICARDO MD 12/30/19 Reported Medications Tramadol Hcl (TRAMADOL HCL) 50 Mg Tablet, 50 MG PO PRN QID PRN for PAIN, TAB 12/27/19 Sucralfate (CARAFATE) 1 Gm Tablet, 1 GM PO TIDAC for Gerd, TAB 12/27/19 Rosuvastatin Calcium (CRESTOR) 10 Mg Tablet, 10 MG PO HS for FOR CHOLESTEROL, #30 TAB 0 Refills 12/27/19 Potassium Chloride (POTASSIUM CHLORIDE ) 20 Meq Tablet.er, 20 MEQ PO DAILY for SUPPLEMENT, TAB 12/27/19 Pantoprazole Sodium (PROTONIX) 40 Mg Tablet.dr, 40 MG PO BIDBFRMEAL for gerd, TAB 12/27/19 Nitroglycerin (NITROSTAT) 0.4 Mg Tab.subl, 0.4 MG SL PRN Q5MIN PRN for CHEST PAIN, TAB 12/27/19 Mv-Mn/Fa/Coq10/Lycopene/Lutein (THERAGRAN-M PREMIER 50+ CAPLET) 1 Each Tablet, 1 EACH PO DAILY for supplement, TAB 12/27/19 Metoprolol Tartrate (METOPROLOL TARTRATE) 25 Mg Tablet, 12.5 MG PO DAILY for FOR HYPERTENSION, #30 TAB 0 Refills 12/27/19 Metformin Hcl (METFORMIN HCL) 1,000 Mg Tablet, 1000 MG PO BIDWMEALS for ANTI- DIABETIC, TAB 0 Refills 12/27/19 Isosorbide Mononitrate (ISOSORBIDE MONONITRATE ER) 120 Mg Tab.er.24h, 120 MG PO DAILY for HTN, TAB.SR 12/27/19 Glipizide (GLIPIZIDE XL) 10 Mg Tab.er.24, 10 MG PO DAILY for DM, TAB.SR 12/27/19 Gabapentin (GABAPENTIN ) 300 Mg Capsule, 300 MG PO QHS for NEUROGENIC PAIN, CAP 12/27/19 Furosemide (FUROSEMIDE) 40 Mg Tablet, 40 MG PO DAILY for edema, TAB 12/27/19 Duloxetine Hcl (CYMBALTA) 60 Mg Capsule.dr, 60 MG PO BID for depression, CAP 12/27/19 Cyanocobalamin (Vitamin B-12) (B-12) 1,000 Mcg Tablet, 1000 MCG PO DAILY for supplement, TAB 12/27/19 Cholecalciferol (Vitamin D3) (Vitamin D3) 125 Mcg Capsule, 125 MCG PO DAILY for supplement, CAP 12/27/19 Calcium Carbonate/Vitamin D3 (CALCIUM 500 + VIT D 400 TABLET) 1 Each Tablet, 1 EACH PO BID for supplement, TAB 12/27/19 Betamethasone/Propylene Glyc (DIPROLENE 0.05% OINTMENT) 15 Gm Oint...g., 1 EMMANUEL TP PRN BID PRN for ITCHING, MISC 12/27/19 Albuterol Sulfate (ALBUTEROL SULFATE NEB SOLN ) 2.5 Mg/3 Ml Vial.neb, 2.5 MG NEB PRN Q6HRS PRN for WHEEZING 12/27/19 Fluticasone/Salmeterol (ADVAIR 250-50 DISKUS) 1 Each Disk.w.dev, 1 EACH IH BID for asthma, INH 12/27/19 VLAD RICARDO MD Dec 30, 2019 14:57
--- NOTE | 2019-12-30 17:23 | NUR ---
NURSING NOTE DISCHARGE PT DISCHARGED HOME VIA AMBULATION PICKED UP BY DAUGHTER. PT GIVEN WRITTEN AND VERBAL DISCHARGE INSTRUCTIONS. PT GIVEN SCRIPTS FOR 2 ANTIBIOTICS WELL TRAMADOL FOR PAIN. PT DENIES ANY QUESTIONS. NO COMPLICATIONS. OSMAN MILES.
--- NOTE | 2019-12-30 18:45 | DS ---
DATE OF DISCHARGE: 12/30/2019 HOSPITAL COURSE: The patient is a 74-year-old female patient who was admitted originally with a complaint of chest pain. She has had 3 sets of cardiac enzymes, all of them were negative and ruled out myocardial infarction. She was found also to have pneumonia and was treated with IV ceftriaxone as well as doxycycline, and she did actually generally well. Has had no more chest pain, although she continued to have shortness of breath on exertion. She remained afebrile and her white cell count was trending down, although she is known to have chronic lymphatic leukemia. We offered to admit her to a fpc facility; however, the patient insisted that she wants to go home with home health and she was advised to follow with her sport shoe spike assembler at the [facility] with the option to follow with our sport shoe spike assembler if she is unable to make connection. PHYSICAL EXAMINATION: GENERAL: When I examined her this afternoon, she was sitting at the edge of the bed comfortably, in no apparent respiratory distress. She was slightly pale. No jaundice, cyanosis, or thyromegaly. No jugular venous distention. No limb edema. VITAL SIGNS: Her heart rate was 77, blood pressure was 125/68, temperature was 98, respiratory rate 20, and oxygen saturation was 96% on 3 liters of oxygen. HEAD, EYES, EARS, NOSE, AND THROAT: Showed normocephalic, atraumatic. NECK: Supple. HEART: Showed normal first and second heart sounds. No gallop or murmur. CHEST: Clear to auscultation. No crepitation or rhonchi. ABDOMEN: Distended, soft, nontender. No guarding or rigidity. No organomegaly. All hernial orifice intact. Bowel sounds normal. NEUROLOGIC: She was awake, alert, responding appropriately, although she does have marked memory impairment. All her cranial nerves intact. She moves extremities without difficulty, but she is extremely short of breath on exertion. She ambulates with a walker. Her intake over the last 24 hours was ____, no output was recorded. LABORATORY DATA: Her lab work as of this morning showed a white cell count 29,600, hemoglobin 11.4, hematocrit 36, MCV 77, and platelet count of 146,000. Her chemistry showed a serum sodium of 140, potassium 3.8, chloride 102, bicarbonate 31, anion gap of 7, BUN 13, creatinine 0.8. Estimated GFR was 69 mL per minute. Her glucose 178. Calcium was 8.9. Total bilirubin, AST, ALT were normal. Alkaline phosphatase slightly elevated. Her total protein was 6.3, albumin 3.2. Her serum triglyceride was 139, total cholesterol 195, LDL cholesterol 130, VLDL was 27, HDL cholesterol was 38 and the ratio was 5. As stated, she has 3 sets of cardiac enzymes that ruled out myocardial infarction. DISCHARGE MEDICATIONS: She will be discharged home with home health to continue on cefdinir 300 mg twice a day for 5 more days and doxycycline 100 mg twice a day for 5 days. She will continue albuterol sulfate 2.5 mg 3 mL by nebulizer every 6 hours. Diprolene 0.05% ointment apply topically twice a day, calcium carbonate with vitamin D one tablet twice a day, cholecalciferol vitamin D3 at 125 mcg once a day, cyanocobalamin 1000 mcg p.o. daily, duloxetine 60 mg twice a day, fluticasone/salmeterol Advair Diskus 250/50 one inhalation twice a day, furosemide 40 mg daily, gabapentin 300 mg at bedtime, glipizide 10 mg daily, isosorbide mononitrate 120 mg daily, metformin 1000 mg twice a day, metoprolol 12.5 mg twice a day. Theragran Premier 1 capsule once a day, nitroglycerin 0.4 mg sublingually every 5 minutes x 3 for chest pain. Protonix 40 mg once a day, potassium chloride 20 mEq once a day, Crestor 10 mg at bedtime, sucralfate 1 g 3 times a day before meals, and tramadol 50 mg q.i.d. FINAL DISCHARGE DIAGNOSES: 1. Chest pain; however, acute myocardial infarction was ruled out, as she had 3 sets of cardiac enzymes, which were normal. 2. Community-acquired pneumonia, for which, she is to continue on oral doxycycline and cefdinir. 3. Acute on chronic obstructive pulmonary disease exacerbation. 4. Acute on chronic hypoxic respiratory failure. 5. Chronic diastolic congestive heart failure. 6. She has chronic lymphatic leukemia, in remission. 7. She has severe osteoarthritis of both knee joints. 8. Peripheral vascular disease. VLAD RICARDO MD DR: YASMINE/shanta JOB#: [id number] / [id number]
[2019-12-31 15:04] LABS: % SEGS 21 % (35-66)
== END 2019-12-30 16:50 | disposition home health service (06) | DRG 177 ==
LOC: ER 09:38 → 1 SOUTH 13:10
PROVIDERS: ADMIT Internal Medicine; ATTEND Internal Medicine
DX: J15.6 Pneumonia due to other Gram-negative bacteria (principal); J96.21 Acute and chronic respiratory failure with hypoxia; C85.90 Non-Hodgkin lymphoma, unspecified, unspecified site; E87.2 Acidosis; I50.42 Chronic combined systolic (congestive) and diastolic (congestive) heart failure; I69.354 Hemiplegia and hemiparesis following cerebral infarction affecting left non-dominant side; J98.11 Atelectasis; C91.11 Chronic lymphocytic leukemia of B-cell type in remission; B35.9 Dermatophytosis, unspecified; D64.9 Anemia, unspecified; E11.21 Type 2 diabetes mellitus with diabetic nephropathy; E11.51 Type 2 diabetes mellitus with diabetic peripheral angiopathy without gangrene; E83.42 Hypomagnesemia; E78.2 Mixed hyperlipidemia; F03.90 Unspecified dementia, unspecified severity, without behavioral disturbance, psychotic disturbance, mood disturbance, and anxiety; F32.9 Major depressive disorder, single episode, unspecified; F41.9 Anxiety disorder, unspecified; G25.81 Restless legs syndrome; G47.33 Obstructive sleep apnea (adult) (pediatric); G89.29 Other chronic pain; H91.90 Unspecified hearing loss, unspecified ear; I11.0 Hypertensive heart disease with heart failure; I25.119 Atherosclerotic heart disease of native coronary artery with unspecified angina pectoris; I25.2 Old myocardial infarction; I70.0 Atherosclerosis of aorta; J43.9 Emphysema, unspecified; K21.9 Gastro-esophageal reflux disease without esophagitis; K74.60 Unspecified cirrhosis of liver; K75.81 Nonalcoholic steatohepatitis (NASH); M15.9 Polyosteoarthritis, unspecified; M54.41 Lumbago with sciatica, right side; M54.42 Lumbago with sciatica, left side; N28.1 Cyst of kidney, acquired; R53.82 Chronic fatigue, unspecified; Z79.1 Long term (current) use of non-steroidal anti-inflammatories (NSAID); Z79.84 Long term (current) use of oral hypoglycemic drugs; Z79.899 Other long term (current) drug therapy; Z82.49 Family history of ischemic heart disease and other diseases of the circulatory system; Z86.19 Personal history of other infectious and parasitic diseases; Z87.891 Personal history of nicotine dependence; Z90.710 Acquired absence of both cervix and uterus; Z98.41 Cataract extraction status, right eye; Z98.42 Cataract extraction status, left eye; E66.01 Morbid (severe) obesity due to excess calories; Z20.828 Contact with and (suspected) exposure to other viral communicable diseases; Z88.8 Allergy status to other drugs, medicaments and biological substances; Z68.35 Body mass index [BMI] 35.0-35.9, adult
CPT/HCPCS: 36415; 36600; 71045; 71275; 80048; 80053; 80061; 82803; 82947; 83605; 83690; 83735; 83880; 84484; 85007; 85025; 85027; 87040; 93005; 93923; 93970; J0696; J3475; J7613; Q9967; 97530; 99285-25; U0003-CS

== ENCOUNTER 2020-07-06 17:33 | Emergency (ER) | payer MEDICARE ==
[~2020-07-06] VITALS: Ht 176.5 cm; Wt 115.0 kg
[~2020-07-06 17:33] MED LIST: ALBU2.5V5 NEB; BETA15OI TP; CALC-30 PO; CEFD300C PO; CHOL500051 PO; CRESTOR10 MG PO; CYAN100072 PO; DOXY100T PO; DULO60CA6 PO; FLUT1DIS3 IH; FURO40TA4 PO; GABA-586 PO; GLIP-26 PO; ISOS120T4 PO; METF10007 PO; METO25TA4 PO; MV-M1TAB8 PO; NITR0.4T24 SL; PANT40TA3 PO; POTA20TA4 PO; SUCR1TAB35 PO; TRAM50TA PO
[2020-07-06 19:50] LABS: CALCIUM 9.4 mg/dL (8.5-10.1); CREATININE 0.9 mg/dL (0.6-1.0); POTASSIUM 4.4 mmol/L (3.5-5.1)
[2020-07-06 19:56] LABS: BASO # 0.1 x10^3/uL (0.0-0.2); BASO % 0 % (0-3); EOS # 0.1 x10^3/uL (0.0-0.7); EOS % 0 % (0-3); HEMATOCRIT 39.5 % (36.0-47.0); HEMOGLOBIN 12.3 g/dL (12.0-15.5); LYMPH # 20.6 x10^3/uL (1.0-4.8); LYMPH % 74 % (24-48); MEAN CORPUSCULAR HEMOGLOBIN 24 pg (25-35); MEAN CORPUSCULAR HGB CONC 31 g/dL (31-37); MEAN CORPUSCULAR VOLUME 76 fL (79-100); MONO # 0.8 x10^3/uL (0.0-1.1); MONO % 3 % (0-9); NEUT # 6.3 x10^3uL (1.8-7.7); NEUT % 23 % (31-73); PLATELET COUNT 128 x10^3/uL (140-400); RED BLOOD COUNT 5.22 x10^6/uL (3.50-5.40); RED CELL DISTRIBUTION WIDTH 18.4 % (11.5-14.5); WHITE BLOOD COUNT 27.9 x10^3/uL (4.0-11.0)
[2020-07-06 20:02] LABS: ALBUMIN 3.5 g/dL (3.4-5.0); ALBUMIN/GLOBULIN RATIO 1.1 (1.0-1.7); MAGNESIUM 1.7 mg/dL (1.8-2.4); PHOSPHORUS 4.1 mg/dL (2.6-4.7); TOTAL BILIRUBIN 0.6 mg/dL (0.2-1.0); TOTAL PROTEIN 6.6 g/dL (6.4-8.2)
--- NOTE | 2020-07-06 20:08 | RAD ---
CT Head W/O Contrast: History: Reason: WEAKNESS / Spl. Instructions: / History: Comparison: none Axial images were obtained without contrast. There is moderate diffuse atrophy. There is no mass effect, extraaxial fluid collections or hydrocep halus. There is no gross bleed. Mild, patchy periventricular and subcortical white matter hypoatten uation is seen. Loss in the cerebellar lobes could be secondary to old infarcts or could be atrophy. There is no foca l loss of perry-white matter distinction to suggest acute ischemia, i.e. stroke. Impression: No acute findings. PQRS Compliance Statement: One or more of the following individualized dose reduction techniques were utilized for this examinat ion: 1. Automated exposure control 2. Adjustment of the mA and/or kV according to patient size 3. Use of iterative reconstruction technique Electronically signed by: Cameron Frank III, MD (07/06/2020 8:06 PM) [facility]
--- NOTE | 2020-07-06 20:31 | PHYS DOC ---
Past History Past Medical History: CHF, CVA, Depression, Diabetes, NE Additional Past Medical Histor: leukemia (HUMERA PADRON APRN) Past Surgical History: Appendectomy Additional Past Surgical Histo: back surgery (HUMERA PADRON APRN) Alcohol Use: None (HUMERA PADRON APRN) Adult General Chief Complaint Chief Complaint: WEAKNESS/GENERALIZED HPI HPI Patient is a 74-year-old female who presents emergency department stating that her primary care physician Dr. FAITH sent her to the emergency department today for a complete work-up and checkup. Patient states she had a telephone interview with him today, he called him EMS to bring her straight to the emergency department. Patient states she is unsure why she had to come by ambulance. Patient denies any chest pain, denies shortness of breath, denies chest palpitations, denies chest congestion or nasal congestion. 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 Patient denies any problems urinating. Patient complains her bilateral lower extremity neuropathy pain scale is an 8/10 on a 1-10 pain scale. Patient states her headache is not so bad. Patient sofia es back pain, fever or chills, visual disturbances, swelling to her extremities, rashes to her skin. Patient denies any other physical complaints or physical concerns. (HUMERA PADRON APRN) Review of Systems Review of Systems 14 body systems of review of systems have been reviewed. See HPI for pertinent positives and negative responses, otherwise all other systems are negative, nonpertinent or noncontributory. (HUMERA PADRON APRN) Allergies Allergies Allergies Coded Allergies Type Severity Reaction Last Updated Verified hydrocodone Allergy Unknown 12/26/19 Yes (HUMERA PADRON APRN) Physical Exam Physical Exam Constitutional: Well developed, well nourished, no acute distress, non-toxic appearance. 74-year-old female in no apparent distress. Patient is in no respiratory distress. HENT: Normocephalic, atraumatic, bilateral external ears normal, oropharynx moist, no oral exudates, nose normal. Bilateral TMs within normal limits, oropharynx moist, pink, no infectious process appreciated. There is no lymphadenopathy of the head or neck appreciated. Eyes: PERRLA, EOMI, conjunctiva normal, no discharge. Neck: Normal range of motion, no tenderness, supple, no stridor. No meningismus signs, no nuchal rigidity, no pain to palpation of the neck. Cardiovascular:Heart rate regular rhythm, no murmur, heart sounds S1-S2 to auscultation. Lungs & Thorax: Bilateral breath sounds clear to auscultation all lung mcclure, no adventitious lung sounds appreciated. Abdomen: Bowel sounds normal, soft, no tenderness, no masses, no pulsatile masses. Skin: Warm, dry, no erythema, no rash. Back: No tenderness, no CVA tenderness. Extremities: No tenderness, no cyanosis, no clubbing, ROM intact, no edema. Neurologic: Alert and oriented X 3, normal motor function, normal sensory function, no focal deficits noted. Psychologic: Affect normal, judgement normal, mood normal. (HUMERA PADRON APRN) Current Patient Data Vital Signs Vital Signs Date Time Temp Pulse Resp B/P (MAP) Pulse Ox O2 Delivery O2 Flow Rate FiO2 07/06/20 18:49 87 20 177/86 (116) 96 07/06/20 17:53 98.1 Nasal Cannula 3.0 Lab Results Laboratory Tests Test 07/06/20 17:39 07/06/20 17:50 Glucose (Fingerstick) 405 mg/dL (70-99) H White Blood Count 27.9 x10^3/uL (4.0-11.0) H Red Blood Count 5.22 x10^6/uL (3.50-5.40) Hemoglobin 12.3 g/dL (12.0-15.5) Hematocrit 39.5 % (36.0-47.0) Mean Corpuscular Volume 76 fL (79-100) L Mean Corpuscular Hemoglobin 24 pg (25-35) L Mean Corpuscular Hemoglobin Concent 31 g/dL (31-37) Red Cell Distribution Width 18.4 % (11.5-14.5) H Platelet Count 128 x10^3/uL (140-400) L Neutrophils (%) (Auto) 23 % (31-73) L Lymphocytes (%) (Auto) 74 % (24-48) H Monocytes (%) (Auto) 3 % (0-9) Eosinophils (%) (Auto) 0 % (0-3) Basophils (%) (Auto) 0 % (0-3) Neutrophils # (Auto) 6.3 x10^3uL (1.8-7.7) Lymphocytes # (Auto) 20.6 x10^3/uL (1.0-4.8) H Monocytes # (Auto) 0.8 x10^3/uL (0.0-1.1) Eosinophils # (Auto) 0.1 x10^3/uL (0.0-0.7) Basophils # (Auto) 0.1 x10^3/uL (0.0-0.2) Platelet Estimate Pending Sodium Level 137 mmol/L (136-145) Potassium Level 4.4 mmol/L (3.5-5.1) Chloride Level 100 mmol/L (98-107) Carbon Dioxide Level 28 mmol/L (21-32) Anion Gap 9 (6-14) Blood Urea Nitrogen 16 mg/dL (7-20) Creatinine 0.9 mg/dL (0.6-1.0) Estimated GFR (Cockcroft-Gault) 61.0 BUN/Creatinine Ratio 18 (6-20) Glucose Level 395 mg/dL (70-99) H Calcium Level 9.4 mg/dL (8.5-10.1) Phosphorus Level 4.1 mg/dL (2.6-4.7) Magnesium Level 1.7 mg/dL (1.8-2.4) L Total Bilirubin 0.6 mg/dL (0.2-1.0) Aspartate Amino Transferase (AST) 42 U/L (15-37) H Alanine Aminotransferase (ALT) 65 U/L (14-59) H Alkaline Phosphatase 173 U/L (46-116) H Troponin I Quantitative < 0.017 ng/mL (0-0.055) NZ-Bmd-U-Type Natriuretic Peptide 125 pg/mL (0-449) Total Protein 6.6 g/dL (6.4-8.2) Albumin 3.5 g/dL (3.4-5.0) Albumin/Globulin Ratio 1.1 (1.0-1.7) (HUMERA PADRON APRN) EKG EKG [] (HUMERA PADRON APRN) Radiology/Procedures Radiology/Procedures PATIENT: GEOVANY PARRA ACCOUNT: [id number] : 1945 LOCATION: ER AGE: 74 SEX: F EXAM STATUS: REG ER ORD. PHYSICIAN: HUMERA PADRON APRN REASON: WEAKNESS PROCEDURE: CT HEAD WO CONTRAST CT Head W/O Contrast: History: Reason: WEAKNESS / Spl. Instructions: / History: Comparison: none Axial images were obtained without contrast. There is moderate diffuse atrophy. There is no mass effect, extraaxial fluid collections or hydrocephalus. There is no gross bleed. Mild, patchy periventricular and subcortical white matter hypoattenuation is seen. Loss in the cerebellar lobes could be secondary to old infarcts or could be atrophy. There is no focal loss of perry-white matter distinction to suggest acute ischemia, i.e. stroke. Impression: No acute findings. RS Compliance Statement: One or more of the following individualized dose reduction techniques were utilized for this examination: 1. Automated exposure control 2. Adjustment of the mA and/or kV according to patient size 3. Use of iterative reconstruction technique Electronically signed by: Patricio Parks III, MD (07/06/2020 8:06 PM) [facility] DICTATED AND SIGNED BY: PATRICIO PARKS III, MD DATE: 07/06/202002 CC: HUMERA PADRON APRN; RUTH ANN FAITH MD ~MTH0 0 (HUMERA PADRON APRN) Heart Score C/O Chest Pain: No Risk Factors: Risk Factors: DM, Current or recent (<one month) smoker, HTN, HLP, family history of CAD, obesity. Risk Scores: Risk Factors: DM, Current or recent (<one month) smoker, HTN, HLP, family history of CAD, obesity. (HUMERA PADRON APRN) Course & Med Decision Making Course & Med Decision Making Pertinent Labs and Imaging studies reviewed. (See chart for details) 74-year-old female, vital signs reviewed, presents to emergency department stati ng that her doctor sent her here for a full work-up. Patient physical examination is unremarkable. Will perform CT head and cardiac pulmonary work-up related to patient's complaint of generalized weakness, lower extremity neuropathy pain, and headaches. CT head negative for acute findings per house radiologist of rotation. Labs and EKG pending at this time. Discussed patient case with ED attending Dr. Woodall who has taken over care at this time. (HUMERA PADRON APRN) Course & Med Decision Making Took over patient care at checkout. Imaging not concerning. NIH of 0. Patient alert and oriented no acute distress. Vital signs notable for mild hypertension. EKG noted above with a rate of 68, QRS of 90, QTc of 498, no STEMI, with probable anterior fascicular block. Troponin normal. Laboratory analysis notable for hyperglycemia and leukocytosis. Patient fluid resuscitated to a blood sugar of 317. Discussed all findings with patient and offered admission for continued IV fluid resuscitation, management of her hyperglycemia and leukocytosis. Patient states she was tired of being in the emergency department and felt well enough to be discharged home. States she just wants to go home and take her medications and call her primary care physician first thing in the morning. Discussed the risks of going home given leukocytosis and hyperglycemia including but not limited to significant illness, disability and/or . Patient stated that she feels well, and wants to go home tonight and call her primary care physician first thing in the morning. Advised to call PCP first thing in the morning to discuss ED visit and set up a follow-up as soon as possible. Gave strict return precautions to the ED. Patient grateful, verbalized understanding and agreed with plan of discharge. (SHREYA WOODALL MD) Dragon Disclaimer Dragon Disclaimer This electronic medical record was generated, in whole or in part, using a voice recognition dictation system. (HUMERA PADRON APRN) Departure Departure: Disposition: 01 DC HOME SELF CARE/HOMELESS Condition: GOOD Referrals: RUTH ANN FAITH MD (PCP) Patient Instructions: Hyperglycemia, Leukocytosis, Weakness, [id number] Additional Instructions: Please read carefully all the attached information concerning the issues discussed at your visit today. You are offered admission today for continued fluid resuscitation, observation and evaluation but decided to go home as you said he felt well enough to go home and will call your primary care in the morning. As discussed please call your primary care physician first thing in the morning to discuss your hyperglycemia need for tighter blood sugar management, your weakness and also need to set a follow-up appointment as soon as possible to get repeat laboratory analysis. Please come back to the emergency department immediately with new or concerning symptoms as discussed. HUMERA PADRON APRN Jul 06, 2020 20:31 SHREYA WOODALL MD Jul 07, 2020 00:24
--- NOTE | 2020-07-06 22:07 | RAD ---
Exam: Chest 2 views INDICATION: Weakness TECHNIQUE: Frontal and lateral views of the chest Comparisons: 12/26/2019 FINDINGS: The cardiomediastinal silhouette and pulmonary vessels are within normal limits. The lung and pleural spaces are clear. IMPRESSION: No acute cardiopulmonary process. Electronically signed by: Diaz Bland MD (07/06/2020 10:05 PM) [facility]
[2020-07-06 22:11] LABS: % LYMPHS 70 % (24-48); % MONOS 5 % (0-10); % SEGS 25 % (35-66)
[2020-07-06 22:12] LABS: ANISOCYTOSIS SLIGHT; HYPOCHROMIA SLIGHT; PLT ESTIMATE DECREASED (ADEQUATE)
[2020-07-06] MEDS ORDERED: IV RINGERS SOLUTION,LACTATED 1,000 ML IV ONE (22:15)
[2020-07-06 23:11] LABS: BILIRUBIN,URINE NEG (NEG); CLARITY,URINE CLEAR; COLOR,URINE YELLOW; GLUCOSE,URINE >=1000 mg/dL (NEG); NITRITE,URINE POS (NEG); UROBILINOGEN,URINE 0.2 mg/dL (0.2 mg/dL)
[2020-07-06 23:12] LABS: BACTERIA,URINE MOD /HPF (0-FEW); RBC,URINE 0 /HPF (0-2); SQUAMOUS EPITHELIAL CELL,UR OCC /LPF
[2020-07-07 00:15] VITALS: BP 150/78
--- NOTE | 2020-07-07 06:46 | EKG ---
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
== END 2020-07-07 00:30 | disposition home or self-care (01) ==
LOC: ER 17:33
DX: R53.1 Weakness (principal); E11.40 Type 2 diabetes mellitus with diabetic neuropathy, unspecified; E11.65 Type 2 diabetes mellitus with hyperglycemia; I25.2 Old myocardial infarction; Z86.73 Personal history of transient ischemic attack (TIA), and cerebral infarction without residual deficits; Z86.79 Personal history of other diseases of the circulatory system; Z88.5 Allergy status to narcotic agent
CPT/HCPCS: 36415; 70450; 71046; 80053; 81001; 82803; 82947; 83735; 83880; 84100; 84484; 85007; 85025; 87086; 93005; 96360; 99285; J7120

== ENCOUNTER 2021-05-07 02:23 | Observation (INO) | payer MEDICARE ==
[~2021-05-07] VITALS: Ht 176.5 cm; Wt 120.0 kg
[~2021-05-07 02:23] MED LIST changes: -DULO60CA6 PO; +DULO60CA7 PO
--- NOTE | 2021-05-07 02:34 | PHYS DOC ---
Past History Past Medical History: Anxiety, Arthritis, Bronchitis, CAD, CHF, CVA, Depression, Diabetes, GERD, High Cholesterol, Heart Disease, Hypertension, [place], Pneumonia, UTI Additional Past Medical Histor: leukemia CLL Past Medical History PVDz Past Surgical History: Appendectomy Additional Past Surgical Histo: back surgery Alcohol Use: None General Adult HPI: HPI: ".. I called the ambulance .. because I was having heart pain.. here in center of my chest...".. " I got up to go to the bathroom.. I had to pee bad.. but then I got sick... and vomited the cheese pizza all over the bathroom..". " and started having some chest pain... it gone now.. I told them to take me to [facility].. but they refused...".." My sugars are up..because I did nt take my meds for 2 or 3 days.. " Patient is a 75 year old female who presents with above hx and complaints of chest pain and vomiting. . Pt. reportedly acting more childish. Pt. gives hx of falls and injury to Lt leg earlier in week on the monday of Apr. and Lt leg has been sore ever since. Pt. advised localized central chest pain after the vomiting episode. Pt. states her Grandson works at [employer]. Pt. states she only likes the cheesy pizza. . Pt. states she has chronic lower leg pain. Pt. glucose on arrival was 377. Pt. normally follows with Dr. Faith and goes to [facility] for all of her care. Pt. has been seen at [facility] prior to closure. Pt. Prior admits at [facility] downwn. Pt. then daughter has arrived and is at bedside currently. Patient has past medical history of coronary artery disease, myocardial infarction x2, congestive heart failure, CLL, CVA, TIA, morbid obesity, obstructive sleep apnea, GERD, peripheral neur opathy, diabetes, and severe arthritis. Patient lives independently. [facility] med[facility] and [facility] pill packs. Patient has had previous surgeries of appendectomy as a teenager, right hip fracture, back surgery, hysterectomy, bilateral cataracts and tonsillectomy. Patient has 1 brother. Mother age 80 because of [place]. Father age 78-. Her. 2 uncles 1 of suicide one after knee surgery. Patient is a ex-smoker but admit to occasional relapse. Does not use alcohol or illicit drugs. 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 She has 1 daughter that due to alcoholism. She has 1 daughter lives here in [place]. Patient has not had COVID vaccination or flu vaccination because she does not like the shots. Patient's follow-ups have not been very compliant due to closure of [facility] the past year. Pt. not on chemotherapy for her CLL. Pt. not on any anti coagulants and has been taken off them. Daughter at bedside states her mother is at her normal level of consciousness and does not appear to be altered Review of Systems: Review of Systems: Constitutional: Denies fever or chills Eyes: Denies change in visual acuity HENT: Denies nasal congestion or sore throat Respiratory: Denies cough or shortness of breath Cardiovascular: Complaints of chest pain GI: Denies abdominal pain, nausea, vomiting, bloody stools or diarrhea : Denies dysuria Musculoskeletal: Denies back pain or joint pain Integument: Denies rash Neurologic: Denies headache, focal weakness or sensory changes Endocrine: Denies polyuria or polydipsia Lymphatic: Denies swollen glands Psychiatric: Denies depression or anxiety Family History: Family History: Non-contributory to presentation Current Medications: Current Meds: See nursing for home meds Allergies: Allergies: Allergies Coded Allergies Type Severity Reaction Last Updated Verified hydrocodone Allergy Unknown 12/26/19 Yes Physical Exam: PE: Constitutional: Moderte acute distress, non-toxic appearance. [] HENT: Normocephalic, atraumatic, bilateral external ears normal, oropharynx moist, no oral exudates, nose normal. [] Eyes: PERRLA, EOMI, conjunctiva normal, no discharge. [] Neck: Normal range of motion, no tenderness, supple, no stridor. [] Cardiovascular:Heart rate regular rhythm, no murmur [] PMI to the left Lungs & Thorax: Bilateral breath sounds equal apexes with scattered wheezes on auscultation [] Abdomen: Bowel sounds normal, soft, no tenderness, no masses, no pulsatile masses. Obese. Old surgery scars Back: No tenderness, no CVA tenderness. [] Extremities: Left lower leg tenderness, no cyanosis, no clubbing, ROM intact, trace ankle edema. [] Neurologic: Alert and oriented X 3, moves all extremities on request, peers have distal sensory,, no focal deficits noted. [] Very hard of hearing. Psychologic: Affect anxious, judgement normal, mood normal. [] EKG: EKG: My interpretation EKG shows a sinus rhythm at 74 bpm. Does have occasional PAC. No signs of acute STEMI with contralateral changes. Time of EKG is 301. [] Radiology/Procedures: Radiology/Procedures: [][address] [address] IMAGING REPORT Signed PATIENT: GEOVANY PARRA ACCOUNT: [id number] : 1945 LOCATION: ER AGE: 75 SEX: F EXAM STATUS: REG ER ORD. PHYSICIAN: AARTI OREILLY MD REASON: Fall, with MS change PROCEDURE: CT HEAD AND CERVICAL SPINE WO EXAM: 1. CT HEAD WITHOUT CONTRAST. 2. CT CERVICAL SPINE WITHOUT CONTRAST. HISTORY: Fall, altered mental status. TECHNIQUE: Computed tomography of the head and cervical spine was performed without intravenous contrast. One or more of the following individualized dose reduction techniques were utilized for this examination: 1. Automated exposure control. 2. Adjustment of the mA and/or kV according to patient size. 3. Use of iterative reconstruction technique. COMPARISON: 07/06/2020. FINDINGS: There is no intracranial hemorrhage. There is a small chronic lacunar infarct in the right thalamus. Prominence of the lateral ventricles and hemispheric sulci indicates mild atrophy. The visualized paranasal sinuses appear clear. The orbits are unremarkable. The temporal bones are unremarkable. The calvarium reveals no suspicious lesions. Reversal of the normal cervical lordosis is likely positional. The there is <2 mm anterolisthesis at C3-4 from facet osteoarthritis. There is mild osteoarthritis at C1/2. No fractures are identified. Degenerative disc disease is moderate from C5 through C7 and mild more superiorly. There is no prevertebral soft tissue swelling. At C2-3, there is a small posterior disc bulge. There is no stenosis. At C3-4, uncovertebral osteoarthritis is mild bilaterally. Facet osteoarthritis is moderate. There is a moderate central protrusion. There is mild central canal stenosis. At C4-5, uncovertebral osteoarthritis is moderate to severe on the right and mild on the left. The right lateral recess is moderately narrowed. Right neural foraminal stenosis is moderate. At C5-6, there is a small posterior disc-osteophyte complex. Uncovertebral osteoarthritis is moderate bilaterally. Neural foraminal stenosis is mild to moderate bilaterally. At C6-7, there is a small posterior disc-osteophyte complex. Uncovertebral osteoarthritis is moderate severe bilaterally. Neural foraminal stenosis is moderate to severe bilaterally. There is mild to moderate centrilobular emphysema in the apices. Cervical lymph nodes are increased in number but not size. Carotid atherosclerotic calcifications are noted. IMPRESSION: 1. No acute intracranial findings. Mild atrophy and chronic microangiopathic white matter change. 2. No cervical fracture or acute malalignment. 3. Moderate degenerative changes as above result in at least mild central canal stenosis and multilevel bilateral moderate to severe neural foraminal stenosis. 4. Lymph nodes are increased in number but not size. Correlate to exclude lymphoma or other causes. Electronically signed by: Jessica Wallis MD (05/07/2021 4:40 AM) [facility] DICTATED AND SIGNED BY: VALENTINE WALLIS MD DATE: 05/07/21 0433 CC: RUTH ANN FAITH MD; AARTI OREILLY MD ~MTH0 0 Heart Score: C/O Chest Pain: Yes HEART Score for Chest Pain: HEART Score for Chest Pain Response (Comments) Value History Moderately Suspicious 1 ECG Nonspecific Repolarizatio 1 Age > 65 2 Risk Factors >3 Risk Factors or Hx CAD 2 Troponin < Normal Limit 0 Total 6 Risk Factors: Risk Factors: DM, Current or recent (<one month) smoker, HTN, HLP, family history of CAD, obesity. Risk Scores: Score 0 - 3: 2.5% MACE over next 6 weeks - Discharge Home Score 4 - 6: 20.3% MACE over next 6 weeks - Admit for Clinical Observation Score 7 - 10: 72.7% MACE over next 6 weeks - Early Invasive Strategies Course & Med Decision Making: Course & Med Decision Making Pertinent Labs and Imaging studies reviewed. (See chart for details) Pt. advised if admitted she wants to go to [facility] if they have a bed. Did state if unable to get a bed at [facility] would consider admit here. 05:55. [facility] system advise all bed filled, and holding pt. in all ED's. Unable to accept this pt. any time in the near future. Pt. states will accept bed here. Pt. endoresed to Dr. Cary at shift change. Discussed presentation, testing and tx. plan with Dr. Taylor - will admit to Obs status. Impression: 1. Nausea and Vomiting 2. Chest Pain 3. DM glucose 377- Hx of non-complinace 4. CLL ( WBC 30.6) 5. El;evated D-dimer 1.05 6. Thrombocytopenia 127 7. Alk Phos. elevated 180 [] Dragon Disclaimer: Dragon Disclaimer: This electronic medical record was generated, in whole or in part, using a voice recognition dictation system. Departure Departure: Referrals: RUTH ANN FAITH MD (PCP) [place] Disclaimer This chart was dictated in whole or in part using Voice Recognition software in a busy, high-work load, and often noisy Emergency Department environment. It may contain unintended and wholly unrecognized errors or omissions. Dragon Disclaimer This chart was dictated in whole or in part using Voice Recognition software in a busy, high-work load, and often noisy Emergency Department environment. It may contain unintended and wholly unrecognized errors or omissions. AARTI OREILLY MD May 07, 2021 02:34
[2021-05-07] MEDS ORDERED: IV NORMAL SALINE 1,000ML 1,000 ML IV SCH (02:45)
--- NOTE | 2021-05-07 03:10 | EKG ---
[address] [address] Test Date: 2021-05-07 Test Time: 03:01:14 Pat Name: GEOVANY PARRA Department: Room: Gender: F Office Services Representative: : 1945 Requested By: AARTI OREILLY Order Number: [id number] Reading MD: Jerald Hampton Measurements Intervals [place] Rate: 74 P: -43 DC: 158 QRS: 13 QRSD: 96 T: 61 QT: 404 QTc: 449 Interpretive Statements SINUS RHYTHM ATRIAL PREMATURE COMPLEX(ES) Electronically Signed On 05-07-2021 14:45:17 MATERIAL CREW SUPERVISOR by Jerald Hampton
[2021-05-07 03:13] LABS: BASO % 0 % (0-3); EOS # 0.1 x10^3/uL (0.0-0.7); EOS % 0 % (0-3); HEMATOCRIT 40.3 % (36.0-47.0); HEMOGLOBIN 12.9 g/dL (12.0-15.5); LYMPH # 21.4 x10^3/uL (1.0-4.8); LYMPH % 70 % (24-48); MEAN CORPUSCULAR HEMOGLOBIN 25 pg (25-35); MEAN CORPUSCULAR HGB CONC 32 g/dL (31-37); MEAN CORPUSCULAR VOLUME 78 fL (79-100); MONO # 0.9 x10^3/uL (0.0-1.1); MONO % 3 % (0-9); NEUT # 8.2 x10^3uL (1.8-7.7); NEUT % 27 % (31-73); PLATELET COUNT 127 x10^3/uL (140-400); RED BLOOD COUNT 5.17 x10^6/uL (3.50-5.40); RED CELL DISTRIBUTION WIDTH 16.3 % (11.5-14.5); WHITE BLOOD COUNT 30.6 x10^3/uL (4.0-11.0)
[2021-05-07 03:31] LABS: % BANDS 1 % (0-9); % LYMPHS 83 % (24-48); % MONOS 2 % (0-10); % SEGS 14 % (35-66); ANION GAP 0 (6-14); BLOOD UREA NITROGEN 16 mg/dL (7-20); CALCIUM 8.8 mg/dL (8.5-10.1); CARBON DIOXIDE 29 mmol/L (21-32); CHLORIDE 99 mmol/L (98-107); CREATININE 0.8 mg/dL (0.6-1.0); GFR 69.7; GLUCOSE 332 mg/dL (70-99); PLT ESTIMATE DECREASED (ADEQUATE); SODIUM 128 mmol/L (136-145)
[2021-05-07 03:44] LABS: ALBUMIN 3.7 g/dL (3.4-5.0); ALK PHOS 180 U/L (46-116); ALT (SGPT) 50 U/L (14-59); AST (SGOT) 36 U/L (15-37); DIRECT BILIRUBIN 0.2 mg/dL (0.0-0.2); LIPASE 94 U/L (73-393); MAGNESIUM 1.8 mg/dL (1.8-2.4); TOTAL BILIRUBIN 0.6 mg/dL (0.2-1.0); TOTAL PROTEIN 6.3 g/dL (6.4-8.2)
[2021-05-07 04:05] LABS: INFLUENZA A PATIENT NEGATIVE (NEGATIVE); INFLUENZA B PATIENT NEGATIVE (NEGATIVE)
[2021-05-07 04:33] LABS: BACTERIA,URINE MANY /HPF (0-FEW); BILIRUBIN,URINE NEG (NEG); CLARITY,URINE HAZY; COLOR,URINE YELLOW; GLUCOSE,URINE >=1000 mg/dL (NEG); NITRITE,URINE POS (NEG); RBC,URINE 0 /HPF (0-2); SQUAMOUS EPITHELIAL CELL,UR FEW /LPF; UROBILINOGEN,URINE 0.2 mg/dL (0.2 mg/dL)
[2021-05-07 04:34] LABS: AMPHETAMINE/METHAMPHETAMINE NEG (NEG); BARBITURATES NEG (NEG); BENZODIAZEPINES NEG (NEG); CANNABINOIDS NEG (NEG); COCAINE NEG (NEG); METHADONE NEG (NEG); OPIATES NEG (NEG); PHENCYCLIDINE NEG (NEG)
--- NOTE | 2021-05-07 04:42 | RAD ---
EXAM: 1. CT HEAD WITHOUT CONTRAST. 2. CT CERVICAL SPINE WITHOUT CONTRAST. HISTORY: Fall, altered mental status. TECHNIQUE: Computed tomography of the head and cervical spine was performed without intravenous contr ast. One or more of the following individualized dose reduction techniques were utilized for this exa mination: 1. Automated exposure control. 2. Adjustment of the mA and/or kV according to patient size. 3. Use of iterative reconstruction technique. COMPARISON: 07/06/2020. FINDINGS: There is no intracranial hemorrhage. There is a small chronic lacunar infarct in the right thalamus. Prominence of the lateral ventricles and hemispheric sulci indicates mild atrophy. The visualized paranasal sinuses appear clear. The orbits are unremarkable. The temporal bones are un remarkable. The calvarium reveals no suspicious lesions. Reversal of the normal cervical lordosis is likely positional. The there is <2 mm anterolisthesis at C3-4 from facet osteoarthritis. There is mild osteoarthritis at C1/2. No fractures are identified. De generative disc disease is moderate from C5 through C7 and mild more superiorly. There is no preverte bral soft tissue swelling. At C2-3, there is a small posterior disc bulge. There is no stenosis. At C3-4, uncovertebral osteoarthritis is mild bilaterally. Facet osteoarthritis is moderate. There is a moderate central protrusion. There is mild central canal stenosis. At C4-5, uncovertebral osteoarthritis is moderate to severe on the right and mild on the left. The ri ght lateral recess is moderately narrowed. Right neural foraminal stenosis is moderate. At C5-6, there is a small posterior disc-osteophyte complex. Uncovertebral osteoarthritis is moderate bilaterally. Neural foraminal stenosis is mild to moderate bilaterally. At C6-7, there is a small posterior disc-osteophyte complex. Uncovertebral osteoarthritis is moderate severe bilaterally. Neural foraminal stenosis is moderate to severe bilaterally. There is mild to moderate centrilobular emphysema in the apices. Cervical lymph nodes are increased i n number but not size. Carotid atherosclerotic calcifications are noted. IMPRESSION: 1. No acute intracranial findings. Mild atrophy and chronic microangiopathic white matter change. 2. No cervical fracture or acute malalignment. 3. Moderate degenerative changes as above result in at least mild central canal stenosis and multilev el bilateral moderate to severe neural foraminal stenosis. 4. Lymph nodes are increased in number but not size. Correlate to exclude lymphoma or other causes. Electronically signed by: Jessica Wallis MD (05/07/2021 4:40 AM) [facility]
[2021-05-07] MEDS ORDERED: ASPIRIN 325 MG TABLET PO ONE ×2 (05:00→06:30)
[2021-05-07] MEDS ORDERED: ACETAMINOPHEN 325 MG TABLET PO ONE (05:30)
[2021-05-07] MEDS ORDERED: APIXABAN 5 MG TABLET. PO ONE (05:42)
[2021-05-07] MEDS ORDERED: ONDANSETRON PF 4 MG/2 ML VIAL. IVP ONE (06:00)
[2021-05-07] MEDS ORDERED: ACETAMINOPHEN 325 MG TABLET PO PRN (06:30)
[2021-05-07] MEDS ORDERED: ONDANSETRON PF 4 MG/2 ML VIAL. IVP PRN (06:30)
[2021-05-07] MEDS ORDERED: MORPHINE SULFATE 2 MG/ML DISP.SYRIN. IVP PRN (06:30)
--- NOTE | 2021-05-07 07:31 | RAD ---
Left tibia and fibula AP and lateral views, chest AP. HISTORY: Fall AP and lateral views were taken of the left tibia and fibula. There is osteoarthritis at the knee wit h joint space narrowing and hypertrophic spurring. There is no acute fracture. IMPRESSION: 1. Osteoarthritis left knee. 2. No acute fracture in the left tibia or fibula. End impression AP chest AP view was taken of the chest. Heart is upper normal in size. Lungs are free of infiltrates. There i s no effusion or pneumothorax. IMPRESSION: 1. No acute infiltrates. Electronically signed by: Costa Schulz MD (05/07/2021 7:29 AM) [id number]
[2021-05-07] MEDS ORDERED: IPRATRPIUM/ALBUTEROL 0.5/2.5MG 3 ML NEBU. NEB SCH (08:00)
[2021-05-07] MEDS ORDERED: METOPROLOL TART IMMED RELEASE 25 MG TABLET. PO SCH (09:00)
[2021-05-07] MEDS ORDERED: DULoxetine HCL 60 MG CAPSULE.DR PO SCH (09:00)
[2021-05-07] MEDS ORDERED: ISOSORBIDE MONONITRATE 120 MG PO SCH (09:00)
[2021-05-07] MEDS ORDERED: CEFDINIR 300 MG CAPSULE PO SCH (09:00)
[2021-05-07] MEDS ORDERED: traMADol 50 MG TABLET PO PRN (09:00)
[2021-05-07] MEDS ORDERED: GLIPIZIDE 10 MG PO SCH (09:00)
[2021-05-07] MEDS ORDERED: DOXYCYCLINE HYCLATE 100 MG TABLET PO SCH (09:00)
[2021-05-07 09:32] VITALS: BP 145/86
--- NOTE | 2021-05-07 09:38 | DS ---
DATE OF DISCHARGE: 05/07/2021 ATTENDING PHYSICIAN: Dr. Taylor. FINAL DISCHARGE DIAGNOSES: 1. Atypical chest pain due to epigastric pain from vomiting. 2. Isolated episode of vomiting. 3. Underlying type 2 diabetes. 4. Probable diabetic gastroparesis. 5. History of coronary artery disease. 6. Degenerative arthritis. 7. Chronic lymphocytic leukemia, not clinically relevant at this time. HISTORY OF PRESENT ILLNESS: The patient is a 75-year-old female, independent, lives alone. She is diabetic. She had an episode of vomiting. She did not feel well. Sugars were a bit off. She had not taken her morning diabetes regimen. She had enzymes that were initially negative. She was brought in for evaluation, observation and serial enzymes. PHYSICAL EXAMINATION: Please see my dictated note. PERTINENT LABORATORY AND X-RAY STUDIES: On admission, her hemoglobin was 12.8 grams, white count 30,000 due to her CLL. Her sodium was 128, asymptomatic due to diuretic. This will be followed up as an outpatient. Potassium was adequate. Three sets of cardiac enzymes negative for coronary ischemia. EKG is nondiagnostic. The obligatory CT of the head and chest showed degenerative changes. No acute strokes or pathology identified. COURSE IN THE HOSPITAL: The patient was better by the time I saw her. I assured her that her enzymes were negative. There was no coronary ischemia. Her vomiting had resolved. I explained to her the condition of diabetic gastroparesis. I reviewed her medications. I made no changes. She has not been vaccinated for COVID. I did not want to keep her here and she does not want to be in the hospital with the potential of catching COVID. She was discharged home with no changes on her meds. She will continue her albuterol, calcium, cefdinir until complete, cholecalciferol, Cymbalta, doxycycline, fluticasone, Lasix, Neurontin, glipizide, isosorbide mononitrate, metformin, metoprolol, nitroglycerin p.r.n., potassium, Protonix, Carafate, and Ultram p.r.n. doses unchanged. She will follow up with her turbine room attendant as well as her PCP, Dr. Jefferson. She was discharged from our hospital in stable condition with explicit drug and followup care. TANVI/AVERY DR: TANVI/shanta TID: [id number] CC: RUTH ANN JEFFERSON
--- NOTE | 2021-05-07 09:46 | HP ---
DATE OF SERVICE: 05/07/2021 ADMIT DATE: 05/07/2021 ATTENDING PHYSICIAN: Dr. Taylor. CHIEF COMPLAINT: Nausea, vomiting and epigastric pain. HISTORY OF PRESENT ILLNESS: This is a 75-year-old female who had an episode of vomiting, no diarrhea, no fevers. She had some associated chest pain, which is more epigastric. With a history of heart disease and coronary artery disease, she was seen in the ED; serial enzymes and extensive workup showed no signs of heart failure; enzymes were negative and EKG is nondiagnostic. She was admitted then for further evaluation and rule-out. It was suggested that she sees one of our cardiologists, she sees cardiovascular consultants through the [facility]. PAST MEDICAL HISTORY: Significant for known coronary artery disease. She also has chronic lymphocytic leukemia, which is quiescent. She has type 2 diabetes and underlying depression. CURRENT MEDICATIONS: Include the following: She takes albuterol, betamethasone, calcium, cefdinir, cholecalciferol, doxycycline, Cymbalta, fluticasone, Lasix p.r.n., Neurontin, glipizide, metformin, metoprolol, Protonix, potassium, Crestor, Carafate and Ultram p.r.n. SOCIAL HISTORY: She is a nonsmoker and nondrinker. ALLERGIES: EYEDROPS and HYDROCODONE, EXACT REACTIONS UNCLEAR. FAMILY HISTORY: Noncontributory. REVIEW OF SYSTEMS: Significant for the episode of nausea. No recent COVID exposure. She has not been vaccinated. She refuses vaccine, she has not had a flu shot either. All other systems reviewed and turned to be negative. By the time I saw her after admission, she was hungry and drinking coffee and eating without any further nausea. PHYSICAL EXAMINATION: GENERAL: When I saw her, this is a pleasant elderly female who is very independent. She was alert. INITIAL VITAL SIGNS: Showed a blood pressure of 149/99. Pulse is regular. She is afebrile. Oxygen saturation is 95% on room air. HEENT: Head is without trauma. Pupils are reactive. Sclerae are nonicteric. Oropharynx is clear. NECK: Supple, no bruits. LUNGS: Clear. CARDIOVASCULAR: Regular heart tones. ABDOMEN: Soft. No guarding. EXTREMITIES: Show trace edema. NEUROLOGIC: Focally intact. PERTINENT LABORATORY AND IMAGING STUDIES: Hemoglobin is 12.9 g/dL, white count 30,000. Chemistry panel: Sodium slightly diminished at 128, creatinine 0.8. Her 3 sets of cardiac enzymes are negative for coronary ischemia. Nonfasting blood sugar was 130. She had the obligatory CT of the chest and head, which showed no acute strokes. There is degenerative arthritis along the cervical spine. Lymph nodes increased in number due to underlying CLL. Chest x-ray is otherwise clear. ASSESSMENT: 1. A 75-year-old female with episodic vomiting, most likely due to gastroparesis from her diabetes. 2. Epigastric pain following vomiting due to stomach acid. She is better. 3. Known coronary artery disease, currently coronary ischemia ruled out. 4. History of chronic lymphocytic leukemia without symptoms at this time. 5. Type 2 diabetes. 6. Probable diabetic gastroparesis. PLAN: 1. Observation status. 2. Serial enzymes. 3. Continue home medications. TANVI/MIMI DR: Florencia TID: [id number] CC: RUTH ANN FAITH
[2021-05-07] MEDS ORDERED: SUCRALFATE 1 GM TABLET. PO SCH (11:30)
[2021-05-07] MEDS ORDERED: PANTOPRAZOLE 40 MG TABLET. PO SCH (16:30)
[2021-05-07] MEDS ORDERED: NON FORMULARY ITEM (Rosuvastatin Calcium (Crestor) 10 MG) PO SCH (21:00)
== END 2021-05-07 10:19 | disposition home or self-care (01) ==
LOC: ER 02:23 → 1 SOUTH 06:20
PROVIDERS: ADMIT Hospitalist; ATTEND Hospitalist
DX: R07.89 Other chest pain (principal); Z20.822 Contact with and (suspected) exposure to COVID-19; R10.13 Epigastric pain; R11.10 Vomiting, unspecified; I25.10 Atherosclerotic heart disease of native coronary artery without angina pectoris; C91.10 Chronic lymphocytic leukemia of B-cell type not having achieved remission; I11.0 Hypertensive heart disease with heart failure; I50.9 Heart failure, unspecified; E11.42 Type 2 diabetes mellitus with diabetic polyneuropathy; E11.43 Type 2 diabetes mellitus with diabetic autonomic (poly)neuropathy; D69.6 Thrombocytopenia, unspecified; E78.00 Pure hypercholesterolemia, unspecified; I25.2 Old myocardial infarction; M19.90 Unspecified osteoarthritis, unspecified site; M48.00 Spinal stenosis, site unspecified; Z86.73 Personal history of transient ischemic attack (TIA), and cerebral infarction without residual deficits; Z87.891 Personal history of nicotine dependence; Z90.49 Acquired absence of other specified parts of digestive tract; Z90.710 Acquired absence of both cervix and uterus; Z91.81 History of falling; Z79.899 Other long term (current) drug therapy; Z98.890 Other specified postprocedural states
CPT/HCPCS: 36415; 70450; 71045; 72125; 73590; 80048; 80076; 80307; 81001; 82550; 82947; 83690; 83735; 83880; 84443; 84484; 85007; 85025; 85379; 85610; 85730; 87077; 87086; 87186; 87428; 93005; 96361; 96374; 99285; G0378; J2405; J7030; G0379

== ENCOUNTER 2021-07-15 13:56 | Observation (INO) | payer MEDICARE ==
[~2021-07-15] VITALS: Ht 175.3 cm; Wt 107.1 kg
--- NOTE | 2021-07-15 15:03 | EKG ---
[address] [address] Test Date: 2021-07-15 Test Time: 14:47:23 Pat Name: GEOVANY PARRA Department: Room: Gender: F Patient Financial Advocate: NEHEMIAS : 1945 Requested By: JERALD HERRON Order Number: [id number] Reading MD: Wilfred Johnson Measurements Intervals [place] Rate: 87 P: -51 TX: 148 QRS: 32 QRSD: 104 T: 45 QT: 390 QTc: 476 Interpretive Statements SINUS RHYTHM LOW LIMB LEAD VOLTAGE PROLONGED QT Electronically Signed On 07-16-2021 13:16:39 CDT by Wilfred Johnson
--- NOTE | 2021-07-15 15:13 | RAD ---
AP chest. HISTORY: Lower extremity swelling, CHF AP view was taken of the chest. Heart is within normal limits in size. There is no pleural effusion. There are no confluent infiltrates. There is atherosclerotic change in the aorta. There is arthritis in the shoulders. IMPRESSION: 1. No acute infiltrates. Electronically signed by: Costa Schulz MD (07/15/2021 3:10 PM) [facility]
[2021-07-15 15:15] LABS: BASO # 0.1 x10^3/uL (0.0-0.2); BASO % 0 % (0-3); EOS # 0.1 x10^3/uL (0.0-0.7); EOS % 0 % (0-3); HEMATOCRIT 40.9 % (36.0-47.0); HEMOGLOBIN 12.8 g/dL (12.0-15.5); LYMPH # 22.3 x10^3/uL (1.0-4.8); LYMPH % 75 % (24-48); MEAN CORPUSCULAR HEMOGLOBIN 25 pg (25-35); MEAN CORPUSCULAR HGB CONC 31 g/dL (31-37); MEAN CORPUSCULAR VOLUME 78 fL (79-100); MONO # 0.8 x10^3/uL (0.0-1.1); MONO % 3 % (0-9); NEUT # 6.6 x10^3uL (1.8-7.7); NEUT % 22 % (31-73); PLATELET COUNT 131 x10^3/uL (140-400); RED BLOOD COUNT 5.22 x10^6/uL (3.50-5.40); RED CELL DISTRIBUTION WIDTH 16.7 % (11.5-14.5); WHITE BLOOD COUNT 29.9 x10^3/uL (4.0-11.0)
--- NOTE | 2021-07-15 15:17 | PHYS DOC ---
Past History Past Medical History: Anxiety, Arthritis, Bronchitis, CAD, CHF, CVA, Depression, Diabetes, GERD, High Cholesterol, Heart Disease, Hypertension, CT, Pneumonia, UTI Additional Past Medical Histor: FATTY LIVER, CLL Past Surgical History: Appendectomy, Tonsillectomy, Other Additional Past Surgical Histo: PINS IN BACK Smoking: Non-smoker, Quit Greater Than 1 Year Alcohol Use: None Drug Use: None General Adult EDM: Chief Complaint: LOWEREXTREMITY INJURY HPI: HPI: Patient is a 75 year old female with extensive past medical history who presents with lower extremity swelling and pain. Patient rates her pain 10/10 in her bilateral lower legs. She also has 8/10 right shoulder pain. Patient reports all the symptoms began 2 days ago, when she fell out of bed. At that time, she called EMS for lift assist. Patient admits she is noncompliant with essentially all of her medications for at least the past 2 days. Patient past medical history includes schizophrenia, CHF, COPD on 2 L 24/10, CVA, multiple MIs, CLL, diabetes type 2. Patient denies all other symptoms including fever, chills, chest pain, palpitations, new cough, new shortness of breath. Patient lives by herself at home with home health that comes a couple of times a week. Her daughter is "busy with her and the kids," so does not come by often. Patient is unable to take care of herself at home on her own. Review of Systems: Review of Systems: ROS negative or noncontributory except as mentioned in HPI. Allergies: Allergies: Allergies Coded Allergies Type Severity Reaction Last Updated Verified hydrocodone Allergy Unknown 07/15/21 Yes Uncoded Allergies Type Severity Reaction Last Updated Verified EYE DROP Allergy Unknown 05/07/21 Physical Exam: PE: Constitutional: Obese, disheveled, no acute distress, chronically ill-appearing. HENT: Normocephalic, atraumatic, bilateral external ears normal, oropharynx moist, no oral exudates, nose normal. Eyes: EOMI, conjunctiva normal, no discharge. Neck: Normal range of motion, no stridor. Cardiovascular: Heart regular rate and rhythm. Lungs & Thorax: Bilateral breath sounds clear to auscultation. Skin: Warm, dry, no ulcerations or abrasions. Extremities: Bilateral lower extremities with 2+ pitting edema and overlying tenderness, DP pulses 2+ and symmetrical, some erythema noted on bilateral feet extending up at the ankles without weeping or warmth. Neurologic: Alert and oriented, no focal deficits noted. Current Patient Data: Labs: Laboratory Tests Test 07/15/21 14:35 07/15/21 15:27 White Blood Count 29.9 x10^3/uL (4.0-11.0) Red Blood Count 5.22 x10^6/uL (3.50-5.40) Hemoglobin 12.8 g/dL (12.0-15.5) Hematocrit 40.9 % (36.0-47.0) Mean Corpuscular Volume 78 fL (79-100) Mean Corpuscular Hemoglobin 25 pg (25-35) Mean Corpuscular Hemoglobin Concent 31 g/dL (31-37) Red Cell Distribution Width 16.7 % (11.5-14.5) Platelet Count 131 x10^3/uL (140-400) Neutrophils (%) (Auto) 22 % (31-73) Lymphocytes (%) (Auto) 75 % (24-48) Monocytes (%) (Auto) 3 % (0-9) Eosinophils (%) (Auto) 0 % (0-3) Basophils (%) (Auto) 0 % (0-3) Neutrophils # (Auto) 6.6 x10^3uL (1.8-7.7) Lymphocytes # (Auto) 22.3 x10^3/uL (1.0-4.8) Monocytes # (Auto) 0.8 x10^3/uL (0.0-1.1) Eosinophils # (Auto) 0.1 x10^3/uL (0.0-0.7) Basophils # (Auto) 0.1 x10^3/uL (0.0-0.2) Sodium Level 140 mmol/L (136-145) Potassium Level 4.3 mmol/L (3.5-5.1) Chloride Level 101 mmol/L (98-107) Carbon Dioxide Level 29 mmol/L (21-32) Anion Gap 10 (6-14) Blood Urea Nitrogen 17 mg/dL (7-20) Creatinine 0.9 mg/dL (0.6-1.0) Estimated GFR (Cockcroft-Gault) 60.9 BUN/Creatinine Ratio 19 (6-20) Glucose Level 485 mg/dL (70-99) Calcium Level 8.7 mg/dL (8.5-10.1) Magnesium Level 1.9 mg/dL (1.8-2.4) Total Bilirubin 0.8 mg/dL (0.2-1.0) Aspartate Amino Transf (AST/SGOT) 57 U/L (15-37) Alanine Aminotransferase (ALT/SGPT) 76 U/L (14-59) Alkaline Phosphatase 206 U/L (46-116) Troponin I High Sensitivity 17 ng/L (4-50) RN-Sfa-Z-Type Natriuretic Peptide 129 pg/mL (0-449) Total Protein 6.0 g/dL (6.4-8.2) Albumin 3.5 g/dL (3.4-5.0) Albumin/Globulin Ratio 1.4 (1.0-1.7) Urine Collection Type Unknown Urine Color Yellow Urine Clarity Clear Urine pH 5.5 Urine Specific [place] 1.015 Urine Protein Neg (NEG-TRACE) Urine Glucose (UA) >=1000 mg/dL (NEG) Urine Ketones (Stick) Neg mg/dL (NEG) Urine Blood Trace (NEG) Urine Nitrite Pos (NEG) Urine Bilirubin Neg (NEG) Urine Urobilinogen Dipstick 0.2 mg/dL (0.2 mg/dL) Urine Leukocyte Esterase Neg (NEG) Urine RBC 0 /HPF (0-2) Urine WBC 11-20 /HPF (0-4) Urine Squamous Epithelial Cells Few /LPF Urine Bacteria Mod /HPF (0-FEW) Vital Signs: Vital Signs Date Time Temp Pulse Resp B/P (MAP) Pulse Ox O2 Delivery O2 Flow Rate FiO2 07/15/21 17:17 95 18 153/86 (108) 93 Room Air 07/15/21 15:30 88 20 142/77 (98) 93 Nasal Cannula 2.0 07/15/21 14:05 98.8 98 20 145/78 (100) 94 Nasal Cannula 2.0 EKG: EKG: EKG Interpreted by Dr. Dai at 1452: Regular rate and rhythm 87 bpm with no ectopic beats. Low limb lead voltage. WA 140 ms/QT 390 milliseconds. No STEMI. Radiology/Procedures: Radiology/Procedures: PROCEDURE: CHEST AP ONLY AP chest. HISTORY: Lower extremity swelling, CHF AP view was taken of the chest. Heart is within normal limits in size. There is no pleural effusion. There are no confluent infiltrates. There is atherosclerotic change in the aorta. There is arthritis in the shoulders. IMPRESSION: 1. No acute infiltrates. Electronically signed by: Costa Schulz MD (07/15/2021 3:10 PM) [facility] PROCEDURE: SHOULDER 2+V RIGHT Exam: XR SHOULDER_RIGHT 2+ VIEWS History: Swelling. Comparison: Chest x-ray 12/26/2019 Findings: Decreased osseous mineralization. No fracture or dislocation. Relative superior subluxation of the humeral head may represent rotator cuff tear. Redemonstrated sclerotic focus in the proximal humeral metaphysis likely calcifying fibro- osseous lesion or enostosis. Osteophytes and subchondral cystic change at the glenohumeral joint. Degenerative changes of the acromioclavicular joint. Degenerative changes throughout the cervical spine. Impression: 1. Degenerative changes of the right shoulder without acute osseous abnormality. Electronically signed by: Angus Chung MD (07/15/2021 3:15 PM) [id number] PROCEDURE: VENOUS LOWER EXT BILATERAL STUDY: US BILATERAL LOWEREXTREMITY VENOUS DOPPLER INDICATION: Swelling and lower extremity tenderness. TECHNIQUE: Color-flow and pulsed wave duplex ultrasound with compression of venous structures of the bilateral lower extremities. COMPARISON: None Available. FINDINGS: Duplex ultrasound with compression of the deep venous structures of the right lower extremity from the common femoral vein through the popliteal vein is ne gative for DVT. The deep veins of the calf are negative for visualized. The left common femoral vein and great saphenous veins are negative for deep venous thrombosis. The remainder of the left lower extremity is not imaged due to pain and patient's refusal. IMPRESSION: No deep venous thrombosis of the right lower extremity. Limited imaging of the left lower extremity demonstrates patent common femoral vein and greater saphenous vein proximally. Remainder of the left lower extremity deep venous structures is not evaluated due to pain and patient's refusal. Electronically signed by: Angus Chung MD (07/15/2021 4:58 PM) [id number] Heart Score: C/O Chest Pain: No Course & Med Decision Making: Course & Med Decision Making Pertinent Labs and Imaging studies reviewed. (See chart for details) Dragon Disclaimer: Dragon Disclaimer: This electronic medical record was generated, in whole or in part, using a voice recognition dictation system. Departure Departure: Impression: Primary Impression: Pedal edema Additional Impressions: Hx of congestive heart failure History of COPD Hx of diabetes mellitus Hx of acute myocardial infarction History of CVA in adulthood Hx of chronic lymphocytic leukemia Medically noncompliant Disposition: ADMITTED INPATIENT Admitting Physician: Ruth Ann Taylor Condition: GUARDED Referrals: RUTH ANN FAITH MD (PCP) JERALD HERRON Jul 15, 2021 15:17
--- NOTE | 2021-07-15 15:17 | RAD ---
Exam: XR SHOULDER_RIGHT 2+ VIEWS History: Swelling. Comparison: Chest x-ray 12/26/2019 Findings: Decreased osseous mineralization. No fracture or dislocation. Relative superior subluxation of the hu meral head may represent rotator cuff tear. Redemonstrated sclerotic focus in the proximal humeral me taphysis likely calcifying fibro-osseous lesion or enostosis. Osteophytes and subchondral cystic de jesus ge at the glenohumeral joint. Degenerative changes of the acromioclavicular joint. Degenerative arellano es throughout the cervical spine. Impression: 1. Degenerative changes of the right shoulder without acute osseous abnormality. Electronically signed by: Angus Chung MD (07/15/2021 3:15 PM) [id number]
[2021-07-15 15:38] LABS: CALCIUM 8.7 mg/dL (8.5-10.1); CREATININE 0.9 mg/dL (0.6-1.0); GFR 60.9; POTASSIUM 4.3 mmol/L (3.5-5.1)
[2021-07-15 15:50] LABS: ALBUMIN 3.5 g/dL (3.4-5.0); ALBUMIN/GLOBULIN RATIO 1.4 (1.0-1.7); MAGNESIUM 1.9 mg/dL (1.8-2.4); TOTAL BILIRUBIN 0.8 mg/dL (0.2-1.0)
[2021-07-15] MEDS ORDERED: FUROSEMIDE 40 MG/4 ML VIAL ONE (16:24)
[2021-07-15 17:00] LABS: COLOR,URINE YELLOW
--- NOTE | 2021-07-15 17:00 | RAD ---
STUDY: US BILATERAL LOWEREXTREMITY VENOUS DOPPLER INDICATION: Swelling and lower extremity tenderness. TECHNIQUE: Color-flow and pulsed wave duplex ultrasound with compression of venous structures of the bilateral lower extremities. COMPARISON: None Available. FINDINGS: Duplex ultrasound with compression of the deep venous structures of the right lower extremity from th e common femoral vein through the popliteal vein is negative for DVT. The deep veins of the calf are negative for visualized. The left common femoral vein and great saphenous veins are negative for deep venous thrombosis. The r emainder of the left lower extremity is not imaged due to pain and patient's refusal. IMPRESSION: No deep venous thrombosis of the right lower extremity. Limited imaging of the left lower extremity demonstrates patent common femoral vein and greater saphe nous vein proximally. Remainder of the left lower extremity deep venous structures is not evaluated d ue to pain and patient's refusal. Electronically signed by: Angus Chung MD (07/15/2021 4:58 PM) [id number]
[2021-07-15 17:01] LABS: BACTERIA,URINE MOD /HPF (0-FEW); CLARITY,URINE CLEAR; GLUCOSE,URINE >=1000 mg/dL (NEG); NITRITE,URINE POS (NEG); RBC,URINE 0 /HPF (0-2); SQUAMOUS EPITHELIAL CELL,UR FEW /LPF; UROBILINOGEN,URINE 0.2 mg/dL (0.2 mg/dL)
[2021-07-15] MEDS ORDERED: metFORMIN 500 MG TABLET PO ONE (17:30)
[2021-07-15] MEDS ORDERED: FUROSEMIDE 40 MG/4 ML VIAL IVP ONE (18:00)
--- NOTE | 2021-07-15 18:23 | NUR ---
Admission note Patient arrival to room 123 via EMS from ED. Report received from OSMAN Kothari. Patient sitting on edge of bed eating dinner. AO x 4, [address] NSR on monitor. Patient oriented to room and able to voice concerns. Call anglin within reach. Safety measures in place.
[2021-07-15 18:34] LABS: % ATYL 2 % (0-0); % LYMPHS 71 % (24-48); % MONOS 2 % (0-10); % SEGS 25 % (35-66)
[2021-07-15 18:35] LABS: PLT ESTIMATE ADEQUATE (ADEQUATE); SMUDGE CELLS PRESENT
[2021-07-15] MEDS: DULoxetine HCL 60 MG CAPSULE.DR PO SCH (19:49)
[2021-07-15 20:57] VITALS: BP 121/61
[2021-07-15] MEDS ORDERED: GABAPENTIN 300 MG CAPSULE. PO SCH (21:00)
[2021-07-15] MEDS ORDERED: ATORVASTATIN CALCIUM 20 MG TABLET PO SCH (21:00)
[2021-07-15] MEDS ORDERED: CALCIUM CARB/VIT D3 500/200 TABLET PO SCH (21:00)
[2021-07-16] VITALS: BP 168/78
[2021-07-16 06:09] LABS: CALCIUM 8.7 mg/dL (8.5-10.1); CREATININE 0.8 mg/dL (0.6-1.0); GFR 69.7; POTASSIUM 3.8 mmol/L (3.5-5.1)
[2021-07-16 06:45] VITALS: BP 152/90
[2021-07-16] MEDS ORDERED: PANTOPRAZOLE 40 MG TABLET. PO SCH (07:30)
[2021-07-16] MEDS ORDERED: metFORMIN 500 MG TABLET PO SCH (08:00)
[2021-07-16] MEDS: DULoxetine HCL 60 MG CAPSULE.DR PO SCH (08:36)
[2021-07-16 08:38] VITALS: BP 152/90
--- NOTE | 2021-07-16 08:47 | HP ---
DATE OF SERVICE: 07/16/2021 ADMIT DATE: 07/15/2021 ATTENDING PHYSICIAN: Dr. Taylor. CHIEF COMPLAINT: Leg swelling and pain. HISTORY OF PRESENT ILLNESS: The patient is a 75-year-old female with multiple medical issues. She is admitted through the ED with a main complaint of leg swelling and pain, resulting from scratching of her skin from her edema. She had bilateral pedal edema. The workup in the ED showed no evidence of heart failure. The BNP was not particularly elevated. She does have dietary indiscretion. She is on quite a bit of meds, which causes a dry mouth, causing her to drink plenty of fluids, as a result they are retained. By the time I saw her the next morning, she was doing better. PAST MEDICAL HISTORY: Significant for depression, anxiety, degenerative arthritis, coronary artery disease, remote history of congestive heart failure, old cerebrovascular accident, type 2 diabetes, gastroesophageal reflux disease, hyperlipidemia, hypertension, previous pneumonias and urinary tract infection. She also has chronic lymphocytic leukemia that has been stable. PAST SURGICAL HISTORY: Includes appendectomy, tonsillectomy, and old back surgery. ALLERGIES: She has allergies to HYDROCODONE. CURRENT MEDICATIONS: Reviewed. She was on scheduled albuterol, betamethasone, calcium, cholecalciferol, B12, Cymbalta, fluticasone 40 mg, Lasix daily, Neurontin, glipizide, Imdur, metformin, metoprolol, pantoprazole, potassium, Crestor, Carafate and Ultram p.r.n. SOCIAL HISTORY: She is a nonsmoker, nondrinker. She has smoked in the past. FAMILY HISTORY: Noncontributory. REVIEW OF SYSTEMS: Significant for the chronic medical issues. She is able to ambulate with some assistance. The pain is much improved after diuresis. She does admit to a cotton mouth and drinking excess fluids. All other systems reviewed and turned to be negative. PHYSICAL EXAMINATION: GENERAL: When I saw her, this is a very alert, elderly female. INITIAL VITAL SIGNS: Showed a blood pressure of 152/90 mmHg, oxygen saturation 92% on 2 liters by nasal cannula, which is her baseline. She already has oxygen at home. Pulse is 90 and regular. She is afebrile. HEENT: Head is without trauma. Pupils are reactive. Sclerae nonicteric. The oropharynx is clear. NECK: Supple, no bruits identified. LUNGS: Good breath sounds. CARDIOVASCULAR: Regular heart tones. ABDOMEN: Soft. No guarding. EXTREMITIES: Show 2+ pitting edema extending up to her thighs. SKIN: Warm and dry. PERTINENT LABORATORY STUDIES: Her admission hemoglobin was 12.8 grams, the white count is 29,900. The differential is predominantly lymphocytes, platelets are 131,000. Creatinine is 0.8 mg percent. Electrolytes within normal range. Transaminases are normal. Nonfasting blood sugar was 333. Urinalysis was unremarkable. Serology negative for coronavirus. ASSESSMENT: 1. This 75-year-old female has significant pedal edema, resulting in a discomfort and pain from the swelling. 2. Dietary indiscretion. 3. Type 2 diabetes mellitus with marginal control. 4. History of chronic lymphocytic leukemia. 5. Gastroesophageal reflux disease. 6. Anxiety with depression. 7. History of congestive heart failure, compensated. 8. Generalized debilitation. PLAN: 1. Observation status. 2. Diuresis. 3. Fluid restriction. 4. Daily weights. 5. Serial chemistries. BIBI DR: Florencia TID: [id number] CC: RUTH ANN FAITH
[2021-07-16] MEDS ORDERED: FUROSEMIDE 40 MG TABLET PO SCH (09:00)
[2021-07-16] MEDS ORDERED: METOPROLOL TART IMMED RELEASE 25 MG TABLET. PO SCH (09:00)
[2021-07-16] MEDS ORDERED: POTASSIUM CHLORIDE 20 MEQ TABLET.ER. PO SCH (09:00)
--- NOTE | 2021-07-16 16:41 | DS ---
DATE OF DISCHARGE: 07/16/2021 ATTENDING PHYSICIAN: Dr. Taylor. FINAL DISCHARGE DIAGNOSES: 1. Pedal edema with symptomatic leg pain, resolved. 2. Dietary indiscretion and excess fluid ingestion. 3. Remote history of congestive heart failure. 4. Chronic lymphocytic leukemia, longstanding. 5. Essential hypertension. 6. Type 2 diabetes mellitus with questionable control. 7. History of congestive heart failure. 8. Old cerebrovascular accident. 9. Essential hypertension. 10. Gastroesophageal reflux disease 11. Hyperlipidemia. 12. Underlying depression with anxiety. 13. Generalized debilitation. HISTORY AND PHYSICAL: The patient is a 75-year-old female with multiple multiple medical issues. She drinks a lot of fluids from dry mouth. She had resulted pedal edema and pain from stretching the skin. She was admitted for further treatment. PHYSICAL EXAMINATION: Please see the dictated note. PERTINENT LABORATORY AND X-RAY STUDIES: On the database. Her white count was elevated due to the CLL. There is no active infection. COURSE IN THE HOSPITAL: The patient was admitted. She was given intravenous Lasix along with fluid restriction and daily weights. Followup chemistries were stable with normal creatinine of 0.9 mg percent. At this time, I recommended increasing the Lasix dose to 80 mg p.o. daily. I did modify her medication. She should continue her Protonix and Carafate as scheduled, albuterol, vitamin D3, B12, Cymbalta, fluticasone, glipizide, Imdur, metformin, metoprolol, nitroglycerin p.r.n., potassium supplementation, Crestor, Carafate and Ultram p.r.n. For now, we held her calcium and her Neurontin, which can cause significant dry mouth. She will follow up with regular physician as scheduled. She was discharged then from our hospital in stable condition with explicit drug and followup care. QUITA DR: Florencia TID: [id number] CC: RUTH ANN FAITH
== END 2021-07-16 13:10 | disposition home or self-care (01) ==
LOC: ER 13:56 → ER HOLD 16:14 → INTOOBSV 16:14 → 1 SOUTH 18:02
PROVIDERS: ADMIT Hospitalist; ATTEND Hospitalist
DX: R60.0 Localized edema (principal); Z20.822 Contact with and (suspected) exposure to COVID-19; E11.9 Type 2 diabetes mellitus without complications; C91.10 Chronic lymphocytic leukemia of B-cell type not having achieved remission; K21.9 Gastro-esophageal reflux disease without esophagitis; F41.8 Other specified anxiety disorders; I11.0 Hypertensive heart disease with heart failure; I50.9 Heart failure, unspecified; R53.81 Other malaise; E78.00 Pure hypercholesterolemia, unspecified; E78.5 Hyperlipidemia, unspecified; I25.10 Atherosclerotic heart disease of native coronary artery without angina pectoris; I25.2 Old myocardial infarction; J44.9 Chronic obstructive pulmonary disease, unspecified; K76.0 Fatty (change of) liver, not elsewhere classified; M19.011 Primary osteoarthritis, right shoulder; F20.9 Schizophrenia, unspecified; Z72.4 Inappropriate diet and eating habits; Z86.73 Personal history of transient ischemic attack (TIA), and cerebral infarction without residual deficits; Z90.49 Acquired absence of other specified parts of digestive tract; Z91.19 Patient's noncompliance with other medical treatment and regimen; Z79.899 Other long term (current) drug therapy; Z98.890 Other specified postprocedural states; Z87.440 Personal history of urinary (tract) infections; Z87.891 Personal history of nicotine dependence
CPT/HCPCS: 36415; 71045; 73030; 80048; 80053; 81001; 83735; 83880; 84484; 85007; 85025; 87077; 87086; 87186; 87426; 93005; 93970; 96374; 99285; G0378; J1940; U0003; G0379